=== PATIENT | female | born 1995 | race Caucasian/White ===

== ENCOUNTER → 2016-07-07 | Outpatient (CLI) | payer OTHER ==
[~2016-07-07] MED LIST: CEFDINIR 300MG300 MG PO; CIPRO 500MG TA500 MG PO; KEFLEX 500MG.500 MG PO; MOTRIN 600MG.600 MG PO; NOMEDS *; NORCO 325 MG-51 TAB PO; ROBITUSSIN NIG118 ML PO
[2016-07-10 14:37] LABS: Neisseria gonorrhoeae, NAA Negative (Negative)
== END ==
LOC: LAB 17:03
PROVIDERS: Nurse Practitioner Obstetrics & Gynecology
DX: Z34.00 Encounter for supervision of normal first pregnancy, unspecified trimester (principal)

== ENCOUNTER 2016-11-11 23:29 | Outpatient (CLI) | payer OTHER ==
[~2016-11-11] VITALS: Ht 157.5 cm; Wt 76.2 kg
[2016-11-11 23:44] VITALS: BP 122/71
[2016-11-11] MEDS ORDERED: PRENATA1 CTB PO (23:51)
[2016-11-11] MEDS ORDERED: MAG-OX 400MG T400 MG PO (23:51)
[2016-11-11] MEDS ORDERED: FERROUS SULFAT325 M2 PO (23:52)
[2016-11-12] MEDS ORDERED: AMOXICILLIN500 M2 PO (20:02)
[2016-11-12] MEDS ORDERED: ALBUTEROL-200 PUFFS/ IH (20:03)
== END 2016-11-12 00:45 ==
LOC: OBOUT 23:29 → OB 23:31 → OBOUT 11-12 00:45
DX: O26.93 Pregnancy related conditions, unspecified, third trimester (principal); Z3A.28 28 weeks gestation of pregnancy; R09.89 Other specified symptoms and signs involving the circulatory and respiratory systems

== ENCOUNTER 2016-11-12 19:41 | Emergency (ER) | payer OTHER ==
[~2016-11-12] VITALS: Ht 157.5 cm; Wt 76.2 kg
[~2016-11-12 19:41] MED LIST changes: +FERROUS SULFAT325 M2 PO; +MAG-OX 400MG T400 MG PO; +PRENATA1 CTB PO
[2016-11-12] MEDS ORDERED: AMOXICILLIN500 M2 PO (20:02)
[2016-11-12] MEDS ORDERED: ALBUTEROL-200 PUFFS/ IH (20:03)
--- NOTE | 2016-11-12 20:03 | Emergency Room Report ---
History of Present Illness Time Seen by 1943 Presenting Problem in Triage Pt arrived:Walked Presenting Problem:C/O SHORTNESS OF BREATH, COUGHING WITH GREEN SPUTUM. 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 N Clinical Suspician of Infection? N Mental Status: 1 - Regular (Normal Baseline) Sepsis Risk:Possible Sepsis Risk Have you (or family members/close friends) recently traveled outside the [place]? N If Yes, where/when: Have you had exposure to infectious disease within the past month? N TB? Other? Specify: Source patient, RN notes reviewed, family, RN/MD Exam Limitations no limitations Comment This is a 21-year-old feel patient, 29 weeks , presenting the emergency room with shortness of breath and nonproductive cough for the past 3 days. Patient was seen on the OB floor last night. Patient has a history of asthma, but she has been out (for the past 1.5 years) of her JENNIFER inhalers ( Albuterol). ALLERGIES Coded Allergies: No Known Allergies (09/05/15) Home Medications Reported Medications VIT37/IRON/FOLIC ACID (Prenata Chewable Tablet) 1 CTB PO DAILY MAGNESIUM OXIDE (Magnesium Oxide) 400 MG PO DAILY Ferrous Sulfate (Ferrous Sulfate 325MG) 325 MG PO DAILY History Medical History General CAD? No Angina: No [place]: No Hypertension? No Hyperlipidemia? No CHF? No DVT? No PE? No COPD? No Asthma? Yes Anemia? No GERD? No Gastric ulcers? No GI Bleed? No Hernia? No Thyroid Problems? No Hypothyroidism? No CVA? No Seizures? No Diabetes? No Insulin Dependent: No Insulin Pump: No Home FSBS? No Renal Insuffiency? No End Stage Renal Disease? No UTI? No Stones? No BPH? No GB Disease: No Nephritic Syndrome? No Asplenia? No Hepatitis? No Sickle Cell Disease? No Arthritis? No Migraines? No Cataracts? No Glaucoma? No MRSA? No HIV? No TB? No Anxiety? Yes Depression? Yes Cancer? No More? 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 Months Ago Est.Due Date [id number] OB DR ALCAZAR Social History Smoking Hx Smoker: Current Every Day Smoker Tobacco: Yes Type Cigarettes Packs/day < 1 Pack Alcohol Alcohol: No Review of Systems All Other Systems Reviewed and Negative Respiratory see HPI, cough, shortness of breath, wheezing Physical Exam Vital Signs Vital Signs Date Time Temp Pulse Resp B/P Pulse O2 O2 Flow FiO2 Ox Delivery Rate 11/12 2026 98.6 107 20 113/80 92 11/12 2009 20 92 11/12 1944 98.6 107 20 113/80 92 General Appearance normal appearance, WD/WN, no apparent distress Respiratory Status Yes: trachea midline, chest symmetrical, non tender chest. No: respiratory distress. Lung Sounds bilateral: wheezing. 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 No Comment Patient appears medically stable, in minimal distress. Patient will need steroids, oral antibiotics, and a refill of her inhalers. If no better to follow -up with PCP/OB per discharge instructions. Results/Orders Current Medication Orders Sig/Epifanio Start time Last Medication Dose Route Stop Time Status Admin Albuterol 2 PUFFS ONCE ONE 11/12 2014 DC 11/12 IH 11/12 Miscellaneous 1 UNIT ONCE ONE 11/12 2014 DC 11/12 XX 11/12 Albuterol 0 .STK-MED ONE 11/12 2008 DC IH Miscellaneous 0 .STK-MED ONE 11/12 2008 DC XX Ceftriaxone Sodium 0 .STK-MED ONE 11/12 2001 DC .ROUTE Lidocaine HCl 0 .STK-MED ONE 11/12 2001 DC .ROUTE Methylprednisolone 0 .STK-MED ONE 11/12 2001 DC Acetate IM Albuterol 2.5 MG ONCE ONE 11/13 1999 DC 11/12 INH 11/12 Ceftriaxone Sodium 1 GM ONCE ONE 11/13 1999 DC 11/12 IM 11/12 Lidocaine HCl 0 ONCE ONE 11/13 1999 DC 11/12 IM 11/12 Methylprednisolone 80 MG ONCE ONE 11/13 1999 DC 11/12 Acetate IM 11/12 Orders Procedure Date/time Status RT REQUEST ALBUTEROL INHALER 11/12 2002 Active RT REQUEST ALBUTEROL NEB 11/12 1957 Active Departure Departure Time of Disposition 1999 Disposition DC Home or Self Care(routine) Clinical Impression Primary Impression: Asthma exacerbation Secondary Impressions: Acute bronchitis Qualifiers: Bronchitis organism: unspecified organism Qualified Code: J20.9 - Acute bronchitis, unspecified Condition STABLE Patient Instructions Asthma -- Adult, DI for Acute Bronchitis Additional Instructions Please take the medications prescribed as directed, follow-up with your PCP/OB if no better, early next week. Discharge Counseling Counseled pt/family regarding diagnosis, medications/RX, home care, follow up needs Comment Please take the medications prescribed as directed, follow-up with your PCP/OB if no better, early next week. Prescriptions Current Visit Scripts Amoxicillin (Amoxicillin 500MG Tab) 500 MG PO TID #30 TAB Albuterol (Albuterol-Hfa Inhaler) 1 PUFF IH QID #1 INH Ref 2 ED Critical Care Critical Care No at 1330
--- NOTE | 2016-11-12 20:03 | Emergency Room Report ---
History of Present Illness Time Seen by 1943 Presenting Problem in Triage Pt arrived:Walked Presenting Problem:C/O SHORTNESS OF BREATH, COUGHING WITH GREEN SPUTUM. 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 N Clinical Suspician of Infection? N Mental Status: 1 - Regular (Normal Baseline) Sepsis Risk:Possible Sepsis Risk Have you (or family members/close friends) recently traveled outside the [place]? N If Yes, where/when: Have you had exposure to infectious disease within the past month? N TB? Other? Specify: Source patient, RN notes reviewed, family, RN/MD Exam Limitations no limitations Comment This is a 21-year-old feel patient, 29 weeks , presenting the emergency room with shortness of breath and nonproductive cough for the past 3 days. Patient was seen on the OB floor last night. Patient has a history of asthma, but she has been out (for the past 1.5 years) of her JENNIFER inhalers ( Albuterol). ALLERGIES Coded Allergies: No Known Allergies (09/05/15) Home Medications Reported Medications VIT37/IRON/FOLIC ACID (Prenata Chewable Tablet) 1 CTB PO DAILY MAGNESIUM OXIDE (Magnesium Oxide) 400 MG PO DAILY Ferrous Sulfate (Ferrous Sulfate 325MG) 325 MG PO DAILY History Medical History General CAD? No Angina: No [place]: No Hypertension? No Hyperlipidemia? No CHF? No DVT? No PE? No COPD? No Asthma? Yes Anemia? No GERD? No Gastric ulcers? No GI Bleed? No Hernia? No Thyroid Problems? No Hypothyroidism? No CVA? No Seizures? No Diabetes? No Insulin Dependent: No Insulin Pump: No Home FSBS? No Renal Insuffiency? No End Stage Renal Disease? No UTI? No Stones? No BPH? No GB Disease: No Nephritic Syndrome? No Asplenia? No Hepatitis? No Sickle Cell Disease? No Arthritis? No Migraines? No Cataracts? No Glaucoma? No MRSA? No HIV? No TB? No Anxiety? Yes Depression? Yes Cancer? No More? 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 Ago Est.Due Date [id number] OB DR ALCAZAR Social History Smoking Hx Smoker: Current Every Day Smoker Tobacco: Yes Type Cigarettes Packs/day < 1 Pack Alcohol Alcohol: No Review of Systems All Other Systems Reviewed and Negative Respiratory see HPI, cough, shortness of breath, wheezing Physical Exam Vital Signs Vital Signs Date Time Temp Pulse Resp B/P Pulse O2 O2 Flow FiO2 Ox Delivery Rate 11/12 2026 98.6 107 20 113/80 92 11/12 2009 20 92 11/12 1944 98.6 107 20 113/80 92 General Appearance normal appearance, WD/WN, no apparent distress Respiratory Status Yes: trachea midline, chest symmetrical, non tender chest. No: respiratory distress. Lung Sounds bilateral: wheezing. 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 No Comment Patient appears medically stable, in minimal distress. Patient will need steroids, oral antibiotics, and a refill of her inhalers. If no better to follow -up with PCP/OB per discharge instructions. Results/Orders Current Medication Orders Sig/Epifanio Start time Last Medication Dose Route Stop Time Status Admin Albuterol 2 PUFFS ONCE ONE 11/12 2014 DC 11/12 IH 11/12 Miscellaneous 1 UNIT ONCE ONE 11/12 2014 DC 11/12 XX 11/12 Albuterol 0 .STK-MED ONE 11/12 2008 DC IH Miscellaneous 0 .STK-MED ONE 11/12 2008 DC XX Ceftriaxone Sodium 0 .STK-MED ONE 11/12 2001 DC .ROUTE Lidocaine HCl 0 .STK-MED ONE 11/12 2001 DC .ROUTE Methylprednisolone 0 .STK-MED ONE 11/12 2001 DC Acetate IM Albuterol 2.5 MG ONCE ONE 11/13 1999 DC 11/12 INH 11/12 Ceftriaxone Sodium 1 GM ONCE ONE 11/13 1999 DC 11/12 IM 11/12 Lidocaine HCl 0 ONCE ONE 11/13 1999 DC 11/12 IM 11/12 Methylprednisolone 80 MG ONCE ONE 11/13 1999 DC 11/12 Acetate IM 11/12 Orders Procedure Date/time Status RT REQUEST ALBUTEROL INHALER 11/12 2002 Active RT REQUEST ALBUTEROL NEB 11/12 1957 Active Departure Departure Time of Disposition 1999 Disposition DC Home or Self Care(routine) Clinical Impression Primary Impression: Asthma exacerbation Secondary Impressions: Acute bronchitis Qualifiers: Bronchitis organism: unspecified organism Qualified Code: J20.9 - Acute bronchitis, unspecified Condition STABLE Patient Instructions Asthma -- Adult, DI for Acute Bronchitis Additional Instructions Please take the medications prescribed as directed, follow-up with your PCP/OB if no better, early next week. Discharge Counseling Counseled pt/family regarding diagnosis, medications/RX, home care, follow up needs Comment Please take the medications prescribed as directed, follow-up with your PCP/OB if no better, early next week. Prescriptions Current Visit Scripts Amoxicillin (Amoxicillin 500MG Tab) 500 MG PO TID #30 TAB Albuterol (Albuterol-Hfa Inhaler) 1 PUFF IH QID #1 INH Ref 2 ED Critical Care Critical Care No at [id number]
[2016-11-12 20:27] VITALS: BP 113/80
== END 2016-11-12 20:29 | disposition home or self-care (01) ==
LOC: ER 19:41
DX: O99.513 Diseases of the respiratory system complicating pregnancy, third trimester (principal); J45.901 Unspecified asthma with (acute) exacerbation; J20.9 Acute bronchitis, unspecified; O99.333 Smoking (tobacco) complicating pregnancy, third trimester; F17.210 Nicotine dependence, cigarettes, uncomplicated; Z79.899 Other long term (current) drug therapy; Z3A.29 29 weeks gestation of pregnancy; T48.6X6A Underdosing of antiasthmatics, initial encounter; Z91.128 Patient's intentional underdosing of medication regimen for other reason
CPT/HCPCS: J1030

== ENCOUNTER 2017-01-29 00:14 | Inpatient (IN) | payer OTHER, MEDICAID ==
[~2017-01-29] VITALS: Ht 157.5 cm; Wt 81.4 kg
[~2017-01-29 00:14] MED LIST changes: +ALBUTEROL-200 PUFFS/ IH; +AMOXICILLIN500 M2 PO
[2017-01-29 00:32] VITALS: BP 134/79
--- OUTSIDE RECORDS SUMMARY | 2017-01-29 01:45 | External Medical Summary Rpt | CCD ---
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 Role Phone MARY ISSA, Unavailable Unavailable MARY ISSA [facility], Unavailable [facility]available [facility] WESLEY KAPLAN, Unavailable Unavailable WESLEY KAPLAN [facility] Unavailable Unavailable [facility] Unavailable Un[facility], [facility] Unavailable Unavailable [facility], [facility] TANVIR SANDERS, TANVIR Unavailable Unavailable [facility] Unavailable Unavailable #[id number], [id number] # Unavailable Unavailable [id number], [facility] # [id number] Purpose Continuity of Care Document - 03-24-2007 through 2016 Problems Code Diagnosis DOS Provider Status 845.00 845.00 05-01-2012 [place] SPRAIN OF [facility] E849.8 E849.8 05-01-2012 Elmer ACCIDENT IN [facility] E927.0 E927.0 05-01-2012 Elmer OVEREXERTIO [facility] SUDDEN STRENUOUS MOVEMENT 3671 MYOPIA 05-21-2011 TANVIR SANDERS [id number] GENERALIZED 05-05-2010 [facility] ND PAIN [facility] 462 ACUTE 05-02-2010 [facility] ND PHARYNGITIS [facility] 7295 PAIN IN 02-10-2010 [facility] SOFT [facility] LIMB 7840 HEADACHE 01-21-2010 [place] CO [facility] 53888 INJURY OF 11-05-2009 [facility] ND FACE AND MIDDLE NECK OTHER SCHOOL AND UNSPECIFIED 57209 UNSPECIFIED 07-28-2007 [facility] SPRAIN AND STRAIN 37231 SPRAIN AND 07-28-2007 [place] STRAIN OF MEDICAL UNSPECIFIED [facility] FOOT E8498 OTHER 07-28-[address] [place] [address] [facility] E8840 ACCIDENTAL 07-28-2007 [place] FALL FROM MEDICAL PLAYGROUND [facility] V202 ROUTINE 06-15-2007 [facility]/CO INFANT OR HEALTH [facility]ILD [facility] ACCT CHECK 9198 OTH&UNS SUP 05-30-2007 [facility] MX&UNS SITE CENTRAL W/O BANK ACCT MENTION INF 9199 OTH&UNSPEC 03-24-2007 DHS/CO SUP INJURY HEALTH OTH CENTRAL MX&UNSPEC BANK ACCT SITES INF 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 F32.9 MAJOR DEPRESSIVE DISORDER, SINGLE EPISODE, UNSPECIFIED J06.9 ACUTE UPPER RESPIRATORY INFECTION, UNSPECIFIED J20.9 ACUTE BRONCHITIS, UNSPECIFIED J45.901 UNSPECIFIED ASTHMA WITH (ACUTE) EXACERBATIO N N23 UNSPECIFIED RENAL COLIC N39.0 URINARY TRACT INFECTION, SITE NOT SPECIFIED R10.9 UNSPECIFIED ABDOMINAL PAIN R11.0 NAUSEA R45.851 SUICIDAL IDEATIONS T07.XXXA UNSPECIFIED MULTIPLE INJURIES, INITIAL ENCOUNTER T14.8 OTHER INJURY OF UNSPECIFIED BODY REGION Allergies, Adverse Reactions, Alerts Type Allergy to substance Adverse Reaction to Substance Substance Reaction Severity NO KNOWN ALLERGIES Unknown Unknown Medications Na ND Rx Da Fi Fi Am Da Di Ph RX Ph St me C No te ll ll ou ys ag ar # ys at rm s nt no ma ic us Or Da si cy ia de te s n re d Ib 62 02 0 No up 58 -2 ro 40 4- Lo fe 74 20 ng n 70 13 er 60 1 0M Ac G ti Ta ve bl et ST 00 05 10 5 30 30 CL 23 MU Ac RA 00 -1 -2 .0 IN 82 LB ti TT 23 0- 5- 00 IC 47 ER ve ER 23 20 20 RY A 83 11 11 PH 18 0 AR BR MA IA MG CY N T CA LL PS C UL E SI 00 04 10 5 30 30 CL 23 MU Ac NG 00 -2 -2 .0 IN 74 LB ti UL 60 9- 5- 00 IC 73 ER ve AI 27 20 20 RY R 55 11 11 PH 5 4 AR BR MG MA IA CY N TA T BL LL ET C CH EW SI 00 04 09 5 30 30 CL 23 MU Ac NG 00 -2 -2 .0 IN 74 LB ti UL 60 9- 2- 00 IC 73 ER ve AI 27 20 20 RY R 55 11 11 PH 5 4 AR BR MG MA IA CY N TA T BL LL ET C CH EW ST 00 05 09 5 30 30 CL 23 MU Ac RA 00 -1 -2 .0 IN 82 LB ti TT 23 0- 2- 00 IC 47 ER ve ER 23 20 20 RY A 83 11 11 PH 18 0 AR BR MA IA MG CY N T CA LL PS C UL E AD 54 08 08 0 30 30 CL 24 MU Ac DE 09 -2 -2 .0 IN 43 LB ti RA 20 4- 4- 00 IC 93 ER ve LL 38 20 20 RY 70 11 11 PH XR 1 AR BR MA IA 20 CY N T MG LL C CA PS UL E CL 00 08 08 0 30 30 CL 24 MU Ac ON 37 -2 -2 .0 IN 43 LB ti ID 80 4- 4- 00 IC 95 ER ve IN 15 20 20 RY E 20 11 11 PH HC 1 AR BR L MA IA 0. CY N 1 T MG LL C TA BL ET SI 00 04 08 5 30 30 CL 23 MU Ac NG 00 -2 -1 .0 IN 74 LB ti UL 60 9- 9- 00 IC 73 ER ve AI 27 20 20 RY R 55 11 11 PH 5 4 AR BR MG MA IA CY N TA T BL LL ET C CH EW ST 00 05 08 5 30 30 CL 23 MU Ac RA 00 -1 -1 .0 IN 82 LB ti TT 23 0- 9- 00 IC 47 ER ve ER 23 20 20 RY A 83 11 11 PH 18 0 AR BR MA IA MG CY N T CA LL PS C UL E CL 00 07 07 0 30 30 CL 24 MU Ac ON 37 -0 -2 .0 IN 14 LB ti ID 80 5- 5- 00 IC 76 ER ve IN 15 20 20 RY E 20 11 11 PH HC 1 AR BR L MA IA 0. CY N 1 T MG LL C TA BL ET ST 00 05 07 5 30 30 CL 23 MU Ac RA 00 -1 -2 .0 IN 82 LB ti TT 23 0- 2- 00 IC 47 ER ve ER 23 20 20 RY A 83 11 11 PH 18 0 AR BR MA IA MG CY N T CA LL PS C UL E AD 54 07 07 0 30 30 CL 24 MU Ac DE 09 -2 -2 .0 IN 25 LB ti RA 20 2- 2- 00 IC 28 ER ve LL 38 20 20 RY 70 11 11 PH XR 1 AR BR MA IA 20 CY N T MG LL C CA PS UL E SI 00 04 07 5 30 30 CL 23 MU Ac NG 00 -2 -0 .0 IN 74 LB ti UL 60 9- 1- 00 IC 73 ER ve AI 27 20 20 RY R 55 11 11 PH 5 4 AR BR MG MA IA CY N TA T BL LL ET C CH EW AD 54 06 06 0 30 30 CL 24 MU Ac DE 09 -1 -1 .0 IN 02 LB ti RA 20 1- 1- 00 IC 32 ER ve LL 38 20 20 RY 70 11 11 PH XR 1 AR BR MA IA 20 CY N T MG LL C CA PS UL E ST 00 05 06 5 30 30 CL 23 MU Ac RA 00 -1 -1 .0 IN 82 LB ti TT 23 0- 0- 00 IC 47 ER ve ER 23 20 20 RY A 83 11 11 PH 18 0 AR BR MA IA MG CY N T CA LL PS C UL E SI 00 04 06 5 30 30 CL 23 MU Ac NG 00 -2 -0 .0 IN 74 LB ti UL 60 9- 2- 00 IC 73 ER ve AI 27 20 20 RY R 55 11 11 PH 5 4 AR BR MG MA IA CY N TA T BL LL ET C CH EW CL 00 01 06 1 30 30 CL 23 HOYT Ac ON 37 -2 -0 .0 IN 13 MM ti ID 80 6- 2- 00 IC 56 ON ve IN 15 20 20 D E 20 11 11 PH KA HC 1 AR TH L MA AR 0. CY IN 1 E MG LL Y C TA BL ET AD 54 05 05 0 30 30 CL 23 MU Ac DE 09 -1 -1 .0 IN 82 LB ti RA 20 0- 0- 00 IC 46 ER ve LL 38 20 20 RY 70 11 11 PH XR 1 AR BR MA IA 20 CY N T MG LL C CA PS UL E ST 00 05 05 0 30 30 CL 23 MU Ac RA 00 -1 -1 .0 IN 82 LB ti TT 23 0- 0- 00 IC 47 ER ve ER 23 20 20 RY A 83 11 11 PH 18 0 AR BR MA IA MG CY N T CA LL PS C UL E SI 00 04 04 5 30 30 CL 23 MU Ac NG 00 -2 -2 .0 IN 74 LB ti UL 60 9- 9- 00 IC 73 ER ve AI 27 20 20 RY R 55 11 11 PH 5 4 AR BR MG MA IA CY N TA T BL LL ET C CH EW CL 00 01 04 1 30 30 CL 23 HOYT Ac ON 37 -2 -2 .0 IN 13 MM ti ID 80 6- 7- 00 IC 56 ON ve IN 15 20 20 D E 20 11 11 PH KA HC 1 AR TH L MA AR 0. CY IN 1 E MG LL Y C TA BL ET ST 00 02 04 1 30 30 CL 23 HOYT Ac RA 00 -2 -0 .0 IN 33 MM ti TT 23 3- 7- 00 IC 55 ON ve ER 23 20 20 D A 83 11 11 PH KA 18 0 AR TH MA AR MG CY IN E CA LL Y PS C UL E AD 54 04 04 0 30 30 CL 23 MU Ac DE 09 -0 -0 .0 IN 61 LB ti RA 20 7- 7- 00 IC 89 ER ve LL 38 20 20 RY 70 11 11 PH XR 1 AR BR MA IA 20 CY N T MG LL C CA PS UL E CL 00 10 03 5 30 30 CL 22 MU Ac ON 37 -1 -2 .0 IN 47 LB ti ID 80 1- 8- 00 IC 55 ER ve IN 15 20 20 RY E 20 10 11 PH HC 1 AR BR L MA IA 0. CY N 1 T MG LL C TA BL ET SI 00 10 03 5 30 30 CL 22 MU Ac NG 00 -1 -2 .0 IN 47 LB ti UL 60 1- 8- 00 IC 56 ER ve AI 27 20 20 RY R 55 10 11 PH 5 4 AR BR MG MA IA CY N TA T BL LL ET C CH EW AD 54 02 02 0 30 30 CL 23 CO Ac DE 09 -2 -2 .0 IN 33 OP ti RA 20 3- 3- 00 IC 56 ER ve LL 38 20 20 70 11 11 PH DANNY XR 1 AR HN MA G 20 CY MG LL C CA PS UL E ST 00 02 02 1 30 30 CL 23 HOYT Ac RA 00 -2 -2 .0 IN 33 MM ti TT 23 3- 3- 00 IC 55 ON ve ER 23 20 20 D A 83 11 11 PH KA 18 0 AR TH MA AR MG CY IN E CA LL Y PS C UL E CL 00 10 02 5 30 30 CL 22 MU Ac ON 37 -1 -2 .0 IN 47 LB ti ID 80 1- 3- 00 IC 55 ER ve IN 15 20 20 RY E 20 10 11 PH HC 1 AR BR L MA IA 0. CY N 1 T MG LL C TA BL ET SI 00 10 02 5 30 30 CL 22 MU Ac NG 00 -1 -2 .0 IN 47 LB ti UL 60 1- 3- 00 IC 56 ER ve AI 27 20 20 RY R 55 10 11 PH 5 4 AR BR MG MA IA CY N TA T BL LL ET C CH EW AD 54 01 01 0 30 30 CL 23 CO Ac DE 09 -2 -2 .0 IN 13 OP ti RA 20 6- 6- 00 IC 63 ER ve LL 38 20 20 70 11 11 PH DANNY XR 1 AR HN MA G 20 CY MG LL C CA PS UL E ST 00 01 01 0 30 30 CL 23 HOYT Ac RA 00 -2 -2 .0 IN 13 MM ti TT 23 6- 6- 00 IC 55 ON ve ER 23 20 20 D A 83 11 11 PH KA 18 0 AR TH MA AR MG CY IN E CA LL Y PS C UL E CL 00 10 01 5 30 30 CL 22 MU Ac ON 37 -1 -2 .0 IN 47 LB ti ID 80 1- 0- 00 IC 55 ER ve IN 15 20 20 RY E 20 10 11 PH HC 1 AR BR L MA IA 0. CY N 1 T MG LL C TA BL ET SI 00 10 01 5 30 30 CL 22 MU Ac NG 00 -1 -2 .0 IN 47 LB ti UL 60 1- 0- 00 IC 56 ER ve AI 27 20 20 RY R 55 10 11 PH 5 4 AR BR MG MA IA CY N TA T BL LL ET C CH EW ST 00 12 12 0 30 30 CL 22 CO Ac RA 00 -2 -2 .0 IN 92 OP ti TT 23 2- 2- 00 IC 22 ER ve ER 23 20 20 A 83 10 10 PH DANNY 18 0 AR HN MA G MG CY CA LL PS C UL E AD 54 12 12 0 30 30 CL 22 CO Ac DE 09 -2 -2 .0 IN 92 OP ti RA 20 2- 2- 00 IC 24 ER ve LL 38 20 20 70 10 10 PH DANNY XR 1 AR HN MA G 20 CY MG LL C CA PS UL E CL 00 10 12 5 30 30 CL 22 MU Ac ON 37 -1 -2 .0 IN 47 LB ti ID 80 1- 0- 00 IC 55 ER ve IN 15 20 20 RY E 20 10 10 PH HC 1 AR BR L MA IA 0. CY N 1 T MG LL C TA BL ET SI 00 10 12 5 30 30 CL 22 MU Ac NG 00 -1 -2 .0 IN 47 LB ti UL 60 1- 0- 00 IC 56 ER ve AI 27 20 20 RY R 55 10 10 PH 5 4 AR BR MG MA IA CY N TA T BL LL ET C CH EW ST 00 11 11 0 30 30 CL 22 MU Ac RA 00 -1 -1 .0 IN 71 LB ti TT 23 8- 8- 00 IC 22 ER ve ER 23 20 20 RY A 83 10 10 PH 18 0 AR BR MA IA MG CY N T CA LL PS C UL E AD 54 11 11 0 30 30 CL 22 MU Ac DE 09 -1 -1 .0 IN 71 LB ti RA 20 8- 8- 00 IC 23 ER ve LL 38 20 20 RY 70 10 10 PH XR 1 AR BR MA IA 20 CY N T MG LL C CA PS UL E CL 00 10 11 5 30 30 CL 22 MU Ac ON 37 -1 -1 .0 IN 47 LB ti ID 80 1- 6- 00 IC 55 ER ve IN 15 20 20 RY E 20 10 10 PH HC 1 AR BR L MA IA 0. CY N 1 T MG LL C TA BL ET SI 00 10 11 5 30 30 CL 22 MU Ac NG 00 -1 -1 .0 IN 47 LB ti UL 60 1- 6- 00 IC 56 ER ve AI 27 20 20 RY R 55 10 10 PH 5 4 AR BR MG MA IA CY N TA T BL LL ET C CH EW AD 54 10 10 0 30 30 CL 22 MU Ac DE 09 -1 -1 .0 IN 49 LB ti RA 20 3- 4- 00 IC 53 ER ve LL 38 20 20 RY 70 10 10 PH XR 1 AR BR MA IA 20 CY N T MG LL C CA PS UL E ST 00 10 10 0 30 30 CL 22 MU Ac RA 00 -1 -1 .0 IN 49 LB ti TT 23 3- 3- 00 IC 28 ER ve ER 23 20 20 RY A 83 10 10 PH 18 0 AR BR MA IA MG CY N T CA LL PS C UL E CL 00 10 10 5 30 30 CL 22 MU Ac ON 37 -1 -1 .0 IN 47 LB ti ID 80 1- 1- 00 IC 55 ER ve IN 15 20 20 RY E 20 10 10 PH HC 1 AR BR L MA IA 0. CY N 1 T MG LL C TA BL ET SI 00 10 10 5 30 30 CL 22 MU Ac NG 00 -1 -1 .0 IN 47 LB ti UL 60 1- 1- 00 IC 56 ER ve AI 27 20 20 RY R 53 10 10 PH 5 1 AR BR MG MA IA CY N TA T BL LL ET C CH EW AD 54 09 09 0 30 30 CL 22 MU Ac DE 09 -1 -1 .0 IN 33 LB ti RA 20 5- 6- 00 IC 70 ER ve LL 38 20 20 RY 70 10 10 PH XR 1 AR BR MA IA 20 CY N T MG LL C CA PS UL E CL 00 07 09 1 30 30 WA 70 NO Ac ON 37 -3 -1 .0 L- 80 RF ti ID 80 0- 3- 00 MA 32 LE ve IN 15 20 20 RT 7 ET E 20 10 10 R HC 1 PH L AR HE 0. MA NR 1 CY Y MG # TA 10 BL [address] 00 05 09 5 30 30 WA 70 MU Ac RA 00 -1 -1 .0 L- 71 LB ti TT 23 7- 3- 00 MA 03 ER ve ER 23 20 20 RT 7 RY A 83 10 10 18 0 PH BR AR IA MG MA N CY T CA # PS UL 10 E 05 91 SI 00 06 09 2 30 30 WA 70 MU Ac NG 00 -2 -1 .0 L- 76 LB ti UL 60 6- 3- 00 MA 26 ER ve AI 27 20 20 RT 4 RY R 53 10 10 5 1 PH BR MG AR IA MA N TA CY T BL # ET 10 CH 05 EW 91 AD 54 07 08 0 30 30 WA 22 MU Ac DE 09 -3 -0 .0 L- 18 LB ti RA 20 0- 5- 00 MA 41 ER ve LL 38 20 20 RT 2 RY 70 10 10 XR 1 PH BR AR IA 20 MA N CY T MG # CA 10 PS 05 UL 91 E CL 00 07 07 1 30 30 WA 70 NO Ac ON 37 -3 -3 .0 L- 80 RF ti ID 80 0- 0- 00 MA 32 LE ve IN 15 20 20 RT 7 ET E 20 10 10 R HC 1 PH L AR HE 0. MA NR 1 CY Y MG # TA 10 BL [address] 00 05 07 5 30 30 WA 70 MU Ac RA 00 -1 -3 .0 L- 71 LB ti TT 23 7- 0- 00 MA 03 ER ve ER 23 20 20 RT 7 RY A 83 10 10 18 0 PH BR AR IA MG MA N CY T CA # PS UL 10 E 05 91 SI 00 06 07 2 30 30 WA 70 MU Ac NG 00 -2 -3 .0 L- 76 LB ti UL 60 6- 0- 00 MA 26 ER ve AI 27 20 20 RT 4 RY R 53 10 10 5 1 PH BR MG AR IA MA N TA CY T BL # ET 10 CH 05 EW 91 AD 54 06 07 0 30 30 WA 22 MU Ac DE 09 -2 -0 .0 L- 18 LB ti RA 20 9- 1- 00 MA 21 ER ve LL 38 20 20 RT 6 RY 70 10 10 XR 1 PH BR AR IA 20 MA N CY T MG # CA 10 PS [address] 00 05 06 5 30 30 WA 70 MU Ac RA 00 -1 -2 .0 L- 71 LB ti TT 23 7- 6- 00 MA 03 ER ve ER 23 20 20 RT 7 RY A 83 10 10 18 0 PH BR AR IA MG MA N CY T CA # PS UL 10 E 05 91 SI 00 06 06 2 30 30 WA 70 MU Ac NG 00 -2 -2 .0 L- 76 LB ti UL 60 6- 6- 00 MA 26 ER ve AI 27 20 20 RT 4 RY R 53 10 10 5 1 PH BR MG AR IA MA N TA CY T BL # ET 10 CH 05 EW 91 CL 00 03 06 3 30 30 WA 70 NO Ac ON 37 -1 -2 .0 L- 62 RF ti ID 80 5- 6- 00 MA 58 LE ve IN 15 20 20 RT 9 ET E 20 10 10 R HC 1 PH L AR HE 0. MA NR 1 CY Y MG # TA 10 BL 05 ET 91 AD 54 05 05 0 30 30 WA 22 MU Ac DE 09 -1 -2 .0 L- 17 LB ti RA 20 7- 2- 00 MA 99 ER ve LL 38 20 20 RT 1 RY 70 10 10 XR 1 PH BR AR IA 20 MA N CY T MG # CA 10 PS 05 UL 91 E CL 00 03 05 3 30 30 WA 70 NO Ac ON 37 -1 -1 .0 L- 62 RF ti ID 80 5- 7- 00 MA 58 LE ve IN 15 20 20 RT 9 ET E 20 10 10 R HC 1 PH L AR HE 0. MA NR 1 CY Y MG # TA 10 BL 05 ET 91 SI 00 02 05 3 30 30 WA 70 MU Ac NG 00 -1 -1 .0 L- 58 LB ti UL 60 2- 7- 00 MA 35 ER ve AI 27 20 20 RT 7 RY R 53 10 10 5 1 PH BR MG AR IA MA N TA CY T BL # ET 10 CH [address] 00 05 05 5 30 30 WA 70 MU Ac RA 00 -1 -1 .0 L- 71 LB ti TT 23 7- 7- 00 MA 03 ER ve ER 23 20 20 RT 7 RY A 83 10 10 18 0 PH BR AR IA MG MA N CY T CA # PS UL [address] 00 11 04 5 30 30 WA 70 NO Ac RA 00 -1 -2 .0 L- 45 RF ti TT 23 3- 0- 00 MA 58 LE ve ER 23 20 20 RT 3 ET A 83 09 10 R 18 0 PH AR HE MG MA NR CY Y CA # PS UL 10 E 05 91 AD 54 04 04 0 30 30 WA 22 MU Ac DE 09 -1 -2 .0 L- 17 LB ti RA 20 9- 0- 00 MA 79 ER ve LL 38 20 20 RT 3 RY 70 10 10 XR 1 PH BR AR IA 20 MA N CY T MG # CA 10 PS 05 UL 91 E CL 00 03 04 3 30 30 WA 70 NO Ac ON 37 -1 -1 .0 L- 62 RF ti ID 80 5- 4- 00 MA 58 LE ve IN 15 20 20 RT 9 ET E 20 10 10 R HC 1 PH L AR HE 0. MA NR 1 CY Y MG # TA 10 BL 05 ET 91 SI 00 02 04 3 30 30 WA 70 MU Ac NG 00 -1 -1 .0 L- 58 LB ti UL 60 2- 4- 00 MA 35 ER ve AI 27 20 20 RT 7 RY R 53 10 10 5 1 PH BR MG AR IA MA N TA CY T BL # ET 10 CH 05 EW 91 AD 54 03 03 0 30 30 WA 22 MU Ac DE 09 -1 -1 .0 L- 17 LB ti RA 20 9- 9- 00 MA 64 ER ve LL 38 20 20 RT 5 RY 70 10 10 XR 1 PH BR AR IA 20 MA N CY T MG # CA 10 PS [address] 00 11 03 5 30 30 WA 70 NO Ac RA 00 -1 -1 .0 L- 45 RF ti TT 23 3- 5- 00 MA 58 LE ve ER 23 20 20 RT 3 ET A 83 09 10 R 18 0 PH AR HE MG MA NR CY Y CA # PS UL 10 E 05 91 CL 00 03 03 3 30 30 WA 70 NO Ac ON 37 -1 -1 .0 L- 62 RF ti ID 80 5- 5- 00 MA 58 LE ve IN 15 20 20 RT 9 ET E 20 10 10 R HC 1 PH L AR HE 0. MA NR 1 CY Y MG # TA 10 BL 05 ET 91 SI 00 02 03 3 30 30 WA 70 MU Ac NG 00 -1 -1 .0 L- 58 LB ti UL 60 2- 5- 00 MA 35 ER ve AI 27 20 20 RT 7 RY R 53 10 10 5 1 PH BR MG AR IA MA N TA CY T BL # ET 10 CH 05 EW 91 68 03 03 0 30 30 WA 70 MU Ac 04 -1 -1 .0 L- 62 LB ti 70 5- 5- 00 MA 59 ER ve 12 20 20 RT 1 RY 10 10 10 1 PH BR AR IA MA N CY T # 10 05 91 CL 00 09 02 05 30 30 WA 70 NO Ac ON 37 -0 -2 .0 L- 35 RF ti ID 80 5- 6- 00 MA 54 LE ve IN 15 20 20 RT 4 ET E 20 09 10 R HC 1 PH L AR HE 0. MA NR 1 CY Y MG #5 TA [address] 00 11 02 03 30 30 WA 70 NO Ac RA 00 -1 -2 .0 L- 45 RF ti TT 23 3- 6- 00 MA 58 LE ve ER 23 20 20 RT 3 ET A 83 09 10 R 18 0 PH AR HE MG MA NR CY Y CA PS #5 UL 91 E 68 02 02 00 30 30 WA 70 MU Ac 04 -1 -2 .0 L- 58 LB ti 70 2- 6- 00 MA 35 ER ve 12 20 20 RT 8 RY 10 10 10 1 PH BR AR IA MA N CY T #5 91 AD 54 02 02 00 30 30 WA 22 MU Ac DE 09 -1 -2 .0 L- 17 LB ti RA 20 2- 6- 00 MA 48 ER ve LL 38 20 20 RT 4 RY 70 10 10 XR 1 PH BR AR IA 20 MA N CY T MG #5 CA 91 PS UL E SI 00 02 02 00 30 30 WA 70 MU Ac NG 00 -1 -2 .0 L- 58 LB ti UL 60 2- 6- 00 MA 35 ER ve AI 27 20 20 RT 7 RY R 53 10 10 5 1 PH BR MG AR IA MA N TA CY T BL ET #5 91 CH EW AD 54 01 01 00 30 30 WA 22 MU Ac DE 09 -1 -2 .0 L- 17 LB ti RA 20 3- 8- 00 MA 32 ER ve LL 38 20 20 RT 6 RY 70 10 10 XR 1 PH BR AR IA 20 MA N CY T MG #5 CA 91 PS UL E 68 01 01 00 30 30 WA 70 MU Ac 04 -1 -2 .0 L- 54 LB ti 70 5- 8- 00 MA 50 ER ve 12 20 20 RT 0 RY 10 10 10 1 PH BR AR IA MA N CY T #5 91 CL 00 09 01 04 30 30 WA 70 NO Ac ON 37 -0 -2 .0 L- 35 RF ti ID 80 5- 8- 00 MA 54 LE ve IN 15 20 20 RT 4 ET E 20 09 10 R HC 1 PH L AR HE 0. MA NR 1 CY Y MG #5 TA [address] 00 11 01 02 30 30 WA 70 NO Ac RA 00 -1 -2 .0 L- 45 RF ti TT 23 3- 8- 00 MA 58 LE ve ER 23 20 20 RT 3 ET A 83 09 10 R 18 0 PH AR HE MG MA NR CY Y CA PS #5 UL 91 E SI 00 06 01 04 30 30 WA 70 MU Ac NG 00 -2 -1 .0 L- 26 LB ti UL 60 5- 4- 00 MA 12 ER ve AI 27 20 20 RT 3 RY R 53 09 10 5 1 PH BR MG AR IA MA N TA CY T BL ET #5 91 CH EW 68 12 12 00 30 30 WA 70 MU Ac 04 -0 -3 .0 L- 49 LB ti 70 9- 1- 00 MA 38 ER ve 12 20 20 RT 9 RY 10 09 09 1 PH BR AR IA MA N CY T #5 91 AD 54 12 12 00 30 30 WA 22 CO Ac DE 09 -1 -3 .0 L- 17 OP ti RA 20 2- 1- 00 MA 17 ER ve LL 38 20 20 RT 7 70 09 09 DANNY XR 1 PH HN AR G 20 MA CY MG #5 CA 91 PS UL E SI 00 06 12 03 30 30 WA 70 MU Ac NG 00 -2 -1 .0 L- 26 LB ti UL 60 5- 7- 00 MA 12 ER ve AI 27 20 20 RT 3 RY R 53 09 09 5 1 PH BR MG AR IA MA N TA CY T BL ET #5 91 CH EW CL 00 09 12 03 30 30 WA 70 NO Ac ON 37 -0 -1 .0 L- 35 RF ti ID 80 5- 7- 00 MA 54 LE ve IN 15 20 20 RT 4 ET E 20 09 09 R HC 1 PH L AR HE 0. MA NR 1 CY Y MG #5 TA [address] 00 11 12 01 30 30 WA 70 NO Ac RA 00 -1 -1 .0 L- 45 RF ti TT 23 3- 7- 00 MA 58 LE ve ER 23 20 20 RT 3 ET A 83 09 09 R 18 0 PH AR HE MG MA NR CY Y CA PS #5 UL 91 E CL 00 09 11 02 30 30 WA 70 NO Ac ON 37 -0 -1 .0 L- 35 RF ti ID 80 5- 9- 00 MA 54 LE ve IN 15 20 20 RT 4 ET E 20 09 09 R HC 1 PH L AR HE 0. MA NR 1 CY Y MG #5 TA [address] 00 11 11 00 30 30 WA 70 NO Ac RA 00 -1 -1 .0 L- 45 RF ti TT 23 3- 9- 00 MA 58 LE ve ER 23 20 20 RT 3 ET A 83 09 09 R 18 0 PH AR HE MG MA NR CY Y CA PS #5 UL 91 E 68 09 11 00 30 30 WA 70 MU Ac 04 -1 -1 .0 L- 36 LB ti 70 0- 9- 00 MA 26 ER ve 12 20 20 RT 5 RY 10 09 09 1 PH BR AR IA MA N CY T #5 91 SI 00 06 11 02 30 30 WA 70 MU Ac NG 00 -2 -1 .0 L- 26 LB ti UL 60 5- 9- 00 MA 12 ER ve AI 27 20 20 RT 3 RY R 53 09 09 5 1 PH BR MG AR IA MA N TA CY T BL ET #5 91 CH EW AD 54 11 11 00 30 30 WA 22 NO Ac DE 09 -1 -1 .0 L- 17 RF ti RA 20 3- 9- 00 MA 00 LE ve LL 38 20 20 RT 5 ET 70 09 09 R XR 1 PH AR HE 20 MA NR CY Y MG #5 CA 91 PS UL E CL 00 09 09 00 30 30 WA 70 NO Ac ON 37 -0 -2 .0 L- 35 RF ti ID 80 5- 4- 00 MA 54 LE ve IN 15 20 20 RT 4 ET E 20 09 09 R HC 1 PH L AR HE 0. MA NR 1 CY Y MG #5 TA 91 BL ET 68 09 09 00 30 30 WA 70 MU Ac 04 -1 -2 .0 L- 36 LB ti 70 0- 4- 00 MA 26 ER ve 12 20 20 RT 5 RY 10 09 09 1 PH BR AR IA MA N CY T #[address] 00 09 09 00 30 30 WA 70 NO Ac RA 00 -0 -2 .0 L- 35 RF ti TT 23 5- 4- 00 MA 54 LE ve ER 23 20 20 RT 5 ET A 83 09 09 R 18 0 PH AR HE MG MA NR CY Y CA PS #5 UL 91 E AD 54 09 09 00 30 30 WA 22 NO Ac DE 09 -0 -2 .0 L- 16 RF ti RA 20 5- 4- 00 MA 67 LE ve LL 38 20 20 RT 3 ET 70 09 09 R XR 1 PH AR HE 20 MA NR CY Y MG #5 CA 91 PS UL E AD 54 07 08 00 30 30 WA 22 CO Ac DE 09 -2 -1 .0 L- 16 OP ti RA 20 4- 3- 00 MA 45 ER ve LL 38 20 20 RT 1 70 09 09 DANNY XR 1 PH HN AR G 20 MA CY MG #5 CA 91 PS UL E 51 06 07 01 30 30 WA 70 MU Ac 07 -1 -3 .0 L- 24 LB ti 90 5- 0- 00 MA 63 ER ve 29 20 20 RT 5 RY 96 09 09 3 PH BR AR IA MA N CY T #5 91 SI 00 06 07 01 30 30 WA 70 MU Ac NG 00 -2 -3 .0 L- 26 LB ti UL 60 5- 0- 00 MA 12 ER ve AI 27 20 20 RT 3 RY R 53 09 09 5 1 PH BR MG AR IA MA N TA CY T BL ET #5 91 CH EW 10 05 07 02 60 30 WA 70 MU Ac 12 -2 -3 .0 L- 22 LB ti 20 7- 0- 00 MA 14 ER ve 20 20 20 RT 5 RY 31 09 09 0 PH BR AR IA MA N CY T #5 91 SI 00 06 07 00 30 30 WA 70 MU Ac NG 00 -2 -0 .0 L- 26 LB ti UL 60 5- 2- 00 MA 12 ER ve AI 27 20 20 RT 3 RY R 53 09 09 5 1 PH BR MG AR IA MA N TA CY T BL ET #5 91 CH EW AD 54 06 07 00 30 30 WA 22 MU Ac DE 09 -2 -0 .0 L- 16 LB ti RA 20 6- 2- 00 MA 31 ER ve LL 38 20 20 RT 5 RY 70 09 09 XR 1 PH BR AR IA 20 MA N CY T MG #5 CA 91 PS UL E 10 05 07 01 60 30 WA 70 MU Ac 12 -2 -0 .0 L- 22 LB ti 20 7- 2- 00 MA 14 ER ve 20 20 20 RT 5 RY 31 09 09 0 PH BR AR IA MA N CY T #5 91 51 06 07 00 30 30 WA 70 MU Ac 07 -1 -0 .0 L- 24 LB ti 90 5- 2- 00 MA 63 ER ve 29 20 20 RT 5 RY 96 09 09 3 PH BR AR IA MA N CY T #5 91 AD 54 05 06 00 30 30 WA 22 MU Ac DE 09 -2 -0 .0 L- 16 LB ti RA 20 6- 4- 00 MA 16 ER ve LL 38 20 20 RT 5 RY 70 09 09 XR 1 PH BR AR IA 20 MA N CY T MG #5 CA 91 PS UL E SI 00 12 06 05 30 30 WA 69 MU Ac NG 00 -1 -0 .0 L- 99 LB ti UL 60 1- 4- 00 MA 49 ER ve AI 27 20 20 RT 6 RY R 53 08 09 5 1 PH BR MG AR IA MA N TA CY T BL ET #5 91 CH EW 10 05 06 00 60 30 WA 70 MU Ac 12 -2 -0 .0 L- 22 LB ti 20 7- 4- 00 MA 14 ER ve 20 20 20 RT 5 RY 31 09 09 0 PH BR AR IA MA N CY T #5 91 51 02 05 02 30 30 WA 70 MU Ac 07 -1 -2 .0 L- 07 LB ti 90 2- 1- 00 MA 83 ER ve 29 20 20 RT 4 RY 96 09 09 3 PH BR AR IA MA N CY T #5 91 SI 00 12 05 04 30 30 WA 69 MU Ac NG 00 -1 -0 .0 L- 99 LB ti UL 60 1- 7- 00 MA 49 ER ve AI 27 20 20 RT 6 RY R 53 08 09 5 1 PH BR MG AR IA MA N TA CY T BL ET #5 91 CH EW AD 54 04 05 00 30 30 WA 22 MU Ac DE 09 -2 -0 .0 L- 15 LB ti RA 20 0- 7- 00 MA 98 ER ve LL 38 20 20 RT 4 RY 70 09 09 XR 1 PH BR AR IA 20 MA N CY T MG #5 CA 91 PS UL E 10 03 05 01 60 30 WA 70 MU Ac 12 -1 -0 .0 L- 11 LB ti 20 2- 7- 00 MA 96 ER ve 20 20 20 RT 3 RY 31 09 09 0 PH BR AR IA MA N CY T #5 91 51 02 04 01 30 30 WA 70 MU Ac 07 -1 -2 .0 L- 07 LB ti 90 2- 3- 00 MA 83 ER ve 29 20 20 RT 4 RY 96 09 09 3 PH BR AR IA MA N CY T #5 91 SI 00 12 03 03 30 30 WA 69 MU Ac NG 00 -1 -2 .0 L- 99 LB ti UL 60 1- 6- 00 MA 49 ER ve AI 27 20 20 RT 6 RY R 53 08 09 5 1 PH BR MG AR IA MA N TA CY T BL ET #5 91 CH EW AD 54 03 03 00 30 30 WA 22 MU Ac DE 09 -1 -2 .0 L- 15 LB ti RA 20 6- 6- 00 MA 80 ER ve LL 38 20 20 RT 3 RY 70 09 09 XR 1 PH BR AR IA 20 MA N CY T MG #5 CA 91 PS UL E 10 03 03 00 60 30 WA 70 MU Ac 12 -1 -2 .0 L- 11 LB ti 20 2- 6- 00 MA 96 ER ve 20 20 20 RT 3 RY 31 09 09 0 PH BR AR IA MA N CY T #5 91 51 02 03 00 30 30 WA 70 MU Ac 07 -1 -1 .0 L- 07 LB ti 90 2- 2- 00 MA 83 ER ve 29 20 20 RT 4 RY 96 09 09 3 PH BR AR IA MA N CY T #5 91 MU 00 02 02 00 22 7 WA 70 MU Ac PI 09 -1 -2 .0 L- 07 LB ti RO 31 2- 6- 00 MA 83 ER ve CI 01 20 20 RT 5 RY N 04 09 09 2% 2 PH BR AR IA OI MA N NT CY T ME NT #5 91 SI 00 12 02 02 30 30 WA 69 MU Ac NG 00 -1 -2 .0 L- 99 LB ti UL 60 1- 6- 00 MA 49 ER ve AI 27 20 20 RT 6 RY R 53 08 09 5 1 PH BR MG AR IA MA N TA CY T BL ET #5 91 CH EW 10 02 02 00 60 30 WA 70 MU Ac 12 -1 -2 .0 L- 08 LB ti 20 7- 6- 00 MA 31 ER ve 20 20 20 RT 9 RY 31 09 09 0 PH BR AR IA MA N CY T #5 91 AD 54 02 02 00 30 30 WA 22 MU Ac DE 09 -1 -2 .0 L- 15 LB ti RA 20 2- 6- 00 MA 62 ER ve LL 38 20 20 RT 3 RY 70 09 09 XR 1 PH BR AR IA 20 MA N CY T MG #5 CA 91 PS UL E CL 00 02 02 00 30 30 WA 70 NO Ac ON 37 -0 -1 .0 L- 06 RF ti ID 80 2- 2- 00 MA 19 LE ve IN 15 20 20 RT 6 ET E 20 09 09 R HC 1 PH L AR HE 0. MA NR 1 CY Y MG #5 TA 91 BL ET 10 01 01 00 60 30 WA 70 MU Ac 12 -1 -3 .0 L- 03 LB ti 20 0- 0- 00 MA 35 ER ve 20 20 20 RT 7 RY 31 09 09 0 PH BR AR IA MA N CY T #5 91 SI 00 12 01 01 30 30 WA 69 MU Ac NG 00 -1 -1 .0 L- 99 LB ti UL 60 1- 5- 00 MA 49 ER ve AI 27 20 20 RT 6 RY R 53 08 09 5 1 PH BR MG AR IA MA N TA CY T BL ET #5 91 CH EW CL 00 10 01 02 30 30 WA 69 NO Ac ON 37 -2 -1 .0 L- 93 RF ti ID 80 7- 5- 00 MA 01 LE ve IN 15 20 20 RT 3 ET E 20 08 09 R HC 1 PH L AR HE 0. MA NR 1 CY Y MG #5 TA 91 BL ET AD 54 12 12 00 30 30 WA 22 NO Ac DE 09 -0 -1 .0 L- 15 RF ti RA 20 5- 8- 00 MA 34 LE ve LL 38 20 20 RT 9 ET 70 08 08 R XR 1 PH AR HE 20 MA NR CY Y MG #5 CA 91 PS UL E 51 10 12 01 30 30 WA 69 NO Ac 07 -2 -1 .0 L- 93 RF ti 90 7- 8- 00 MA 01 LE ve 29 20 20 RT 3 ET 96 08 08 R 3 PH AR HE MA NR CY Y #5 91 10 12 12 00 60 30 WA 69 MU Ac 12 -1 -1 .0 L- 99 LB ti 20 1- 8- 00 MA 49 ER ve 20 20 20 RT 5 RY 31 08 08 0 PH BR AR IA MA N CY T #5 91 SI 00 12 12 00 30 30 WA 69 MU Ac NG 00 -1 -1 .0 L- 99 LB ti UL 60 1- 8- 00 MA 49 ER ve AI 27 20 20 RT 6 RY R 53 08 08 5 1 PH BR MG AR IA MA N TA CY T BL ET #5 91 CH EW 51 10 11 00 30 30 WA 69 NO Ac 07 -2 -2 .0 L- 93 RF ti 90 7- 0- 00 MA 01 LE ve 29 20 20 RT 3 ET 96 08 08 R 3 PH AR HE MA NR CY Y #5 91 SI 00 06 11 04 30 30 WA 69 MU Ac NG 00 -2 -2 .0 L- 76 LB ti UL 60 3- 0- 00 MA 94 ER ve AI 27 20 20 RT 2 RY R 53 08 08 5 1 PH BR MG AR IA MA N TA CY T BL ET #5 91 CH EW AD 54 11 11 00 30 30 WA 22 MU Ac DE 09 -0 -2 .0 L- 15 LB ti RA 20 7- 0- 00 MA 18 ER ve LL 38 20 20 RT 0 RY 70 08 08 XR 1 PH BR AR IA 20 MA N CY T MG #5 CA 91 PS UL E 10 10 11 01 60 30 WA 69 MU Ac 12 -1 -2 .0 L- 91 LB ti 20 3- 0- 00 MA 13 ER ve 20 20 20 RT 3 RY 31 08 08 0 PH BR AR IA MA N CY T #5 91 AD 54 10 10 00 30 30 WA 22 NO Ac DE 09 -0 -2 .0 L- 15 RF ti RA 20 7- 3- 00 MA 01 LE ve LL 38 20 20 RT 8 ET 70 08 08 R XR 1 PH AR HE 20 MA NR CY Y MG #5 CA 91 PS UL E CL 00 09 10 00 15 30 [place] 69 NO Ac ON 37 -1 -2 .0 L- 90 RF ti ID 80 5- 3- 00 MA 72 LE ve IN 15 20 20 RT 8 ET E 20 08 08 R HC 1 PH L AR HE 0. MA NR 1 CY Y MG #5 TA 91 BL ET 10 10 10 00 60 30 [place] 69 MU Ac 12 -1 -2 .0 L- 91 LB ti 20 3- 3- 00 MA 13 ER ve 20 20 20 RT 3 RY 31 08 08 0 PH BR AR IA MA N CY T #5 91 SI 00 06 10 03 30 30 [place] 69 MU Ac NG 00 -2 -2 .0 L- 76 LB ti UL 60 3- 3- 00 MA 94 ER ve AI 27 20 20 RT 2 RY R 53 08 08 5 1 PH BR MG AR IA MA N TA CY T BL ET #5 91 CH EW SI 00 06 09 02 30 30 [place] 69 MU Ac NG 00 -2 -2 .0 L- 76 LB ti UL 60 3- 6- 00 MA 94 ER ve AI 27 20 20 RT 2 RY R 53 08 08 5 1 PH BR MG AR IA MA N TA CY T BL ET #5 91 CH EW 10 08 09 01 60 30 [place] 69 MU Ac 12 -0 -2 .0 L- 82 LB ti 20 5- 6- 00 MA 06 ER ve 20 20 20 RT 4 RY 31 08 08 0 PH BR AR IA MA N CY T #5 91 AD 54 08 09 00 30 30 [place] 22 MU Ac DE 09 -2 -1 .0 L- 14 LB ti RA 20 9- 1- 00 MA 84 ER ve LL 38 20 20 RT 8 RY 70 08 08 XR 1 PH BR AR IA 20 MA N CY T MG #5 CA 91 PS UL E 10 08 08 00 60 30 [place] 69 MU Ac 12 -0 -1 .0 L- 82 LB ti 20 5- 4- 00 MA 06 ER ve 20 20 20 RT 4 RY 31 08 08 0 PH BR AR IA MA N CY T #5 91 SI 00 06 08 01 30 30 [place] 69 MU Ac NG 00 -2 -1 .0 L- 76 LB ti UL 60 3- 4- 00 MA 94 ER ve AI 27 20 20 RT 2 RY R 53 08 08 5 1 PH BR MG AR IA MA N TA CY T BL ET #5 91 CH EW AD 54 07 08 00 30 30 [place] 22 NO Ac DE 09 -2 -1 .0 L- 14 RF ti RA 20 9- 4- 00 MA 69 LE ve LL 38 20 20 RT 3 ET 70 08 08 R XR 1 PH AR HE 20 MA NR CY Y MG #5 CA 91 PS UL E SI 00 06 07 00 30 30 [place] 69 MU Ac NG 00 -2 -0 .0 L- 76 LB ti UL 60 3- 3- 00 MA 94 ER ve AI 27 20 20 RT 2 RY R 53 08 08 5 1 PH BR MG AR IA MA N TA CY T BL ET #5 91 CH EW AD 54 06 07 00 30 30 WA 22 MU Ac DE 09 -1 -0 .0 L- 14 LB ti RA 20 6- 3- 00 MA 49 ER ve LL 38 20 20 RT 8 RY 70 08 08 XR 1 PH BR AR IA 20 MA N CY T MG #5 CA 91 PS UL E 10 05 07 01 60 30 [place] 69 No Ac 12 -2 -0 .0 L- 72 t ti 20 0- 3- 00 MA 65 Av ve 20 20 20 RT 4 ai 31 08 08 la 0 PH bl AR e MA CY #5 91 10 05 06 00 60 30 [place] 69 No Ac 12 -2 -0 .0 L- 72 t ti 20 0- 5- 00 MA 65 Av ve 20 20 20 RT 4 ai 31 08 08 la 0 PH bl AR e MA CY #5 91 00 05 06 00 14 30 WA 69 MU Ac 59 -2 -0 .6 L- 73 LB ti 70 8- 5- 99 MA 69 ER ve 01 20 20 RT 0 RY 31 08 08 4 PH BR AR IA MA N CY T #5 91 SI 00 01 06 04 30 30 [place] 69 MU Ac NG 00 -0 -0 .0 L- 54 LB ti UL 60 7- 5- 00 MA 98 ER ve AI 27 20 20 RT 1 RY R 53 08 08 5 1 PH BR MG AR IA MA N TA CY T BL ET #5 91 CH EW AD 54 05 05 00 30 30 WA 22 No Ac DE 09 -1 -2 .0 L- 14 t ti RA 20 6- 2- 00 MA 34 Av ve LL 38 20 20 RT 2 ai 70 08 08 la XR 1 PH bl AR e 20 MA CY MG #5 CA 91 PS UL E 59 04 05 00 11 11 [place] 69 No Ac 70 -1 -0 8. L- 68 t ti 20 8- 8- 00 MA 64 Av ve 14 20 20 0 RT 9 ai 10 08 08 la 4 PH bl AR e MA CY #5 91 SI 00 01 04 03 30 30 [place] 69 No Ac NG 00 -0 -2 .0 L- 54 t ti UL 60 7- 4- 00 MA 98 Av ve AI 27 20 20 RT 1 ai R 53 08 08 la 5 1 PH bl MG AR e MA TA CY BL ET #5 91 CH EW AD 54 04 04 00 30 30 [place] 22 No Ac DE 09 -0 -2 .0 L- 14 t ti RA 20 7- 4- 00 MA 16 Av ve LL 38 20 20 RT 4 ai 70 08 08 la XR 1 PH bl AR e 20 MA CY MG #5 CA 91 PS UL E 50 03 04 00 15 30 [place] 69 No Ac 58 -1 -1 0. L- 63 t ti 00 1- 7- 00 MA 62 Av ve 72 20 20 0 RT 9 ai 41 08 08 la 0 PH bl AR e MA CY #5 91 SI 00 01 04 69 No Ac NG 00 -0 -1 .0 L- 54 t ti UL 60 7- 7- 00 MA 98 Av ve AI 27 20 20 RT 1 ai R 53 08 08 la 5 1 PH bl MG AR e MA TA CY BL ET #5 91 CH EW AD 54 03 04 22 No Ac DE 09 -0 -0 .0 L- 14 t ti RA 20 6- 7- 00 MA 01 Av ve LL 38 20 20 RT 0 ai 70 08 08 la XR 1 PH bl AR e 20 MA CY MG #5 CA 91 PS UL E AD 54 02 03 22 No Ac DE 09 -0 -2 .0 L- 13 t ti RA 20 7- 6- 00 MA 86 Av ve LL 38 20 20 RT 9 ai 70 08 08 la XR 1 PH bl AR e 20 MA CY MG #5 CA 91 PS UL E SI 00 01 03 69 No Ac NG 00 -0 -2 .0 L- 54 t ti UL 60 7- 6- 00 MA 98 Av ve AI 27 20 20 RT 1 ai R 53 08 08 la 5 1 PH bl MG AR e MA TA CY BL ET #5 91 CH EW CL 00 11 03 69 No Ac ON 37 -2 -2 .0 L- 49 t ti ID 80 6- 6- 00 MA 90 Av ve IN 15 20 20 RT 3 ai E 20 07 08 la HC 1 PH bl L AR e 0. MA 1 CY MG #5 TA 91 BL ET 50 02 03 69 No Ac 58 -0 -2 0. L- 59 t ti 00 6- 6- 00 MA 15 Av ve 72 20 20 0 RT 8 ai 41 08 08 la 0 PH bl AR e MA CY #5 91 DE 00 01 03 22 No Ac XM 09 -3 -2 .0 L- 13 t ti ET 35 1- 6- 00 MA 84 Av ve HY 27 20 20 RT 0 ai LP 60 08 08 la HE 1 PH bl NI AR e DA MA TE CY 5 #5 MG 91 TA B 00 09 03 03 15 30 [place] 69 No Ac 06 -2 -2 0. L- 42 t ti 95 4- 4- 00 MA 64 Av ve 53 20 20 0 RT 9 ai 04 07 08 la 7 PH bl AR e MA CY #5 91 SI 00 01 03 00 30 30 [place] 69 No Ac NG 00 -0 -2 .0 L- 54 t ti UL 60 7- 4- 00 MA 98 Av ve AI 27 20 20 RT 1 ai R 53 08 08 la 5 1 PH bl MG AR e MA TA CY BL ET #5 91 CH EW FO 00 12 03 00 30 30 [place] 22 No Ac CA 07 -2 -2 .0 L- 13 t ti LI 80 6- 4- 00 MA 72 Av ve N 43 20 20 RT 2 ai XR 20 07 08 la 5 PH bl 20 AR e MA MG CY CA #5 PS 91 UL E Vital Signs 05-01-2012 16:47 Name Value Interpretat Reference Comment ion Range BP 73 mm[Hg] Diastolic BP Systolic 124 mm[Hg] Heart 113 /min Rate/Pulse O2% 98 % Respiratory 20 /min Rate 05-01-2012 16:46 Name Value Interpretat Reference Comment ion Range BP 73 mm[Hg] Diastolic BP Systolic 124 mm[Hg] Heart 113 /min Rate/Pulse O2% 98 % Respiratory 20 /min Rate Results Labs Lab Lab Date Result Refere Interp Status Commen Order Detail nces retati t Range on CHLAMYDIA AND GONORRHEA TESTING (09-29-2011 11:45) Chlamyd NEGATIV complet ia 012 E ed trachom 11:45 atis rRNA [Presen ce] in Unspeci fied specime n by Probe & target amplifi cation method Neisser NEGATIV complet ia 012 E ed gonorrh 11:45 oeae rRNA [Presen ce] in Unspeci fied specime n by Probe & target amplifi cation method CHLAMYDIA AND GONORRHEA TESTING (09-29-2011 11:45) COLLECT NA complet OR 012 ed 11:45 ETHNICI WHITE, complet TY 012 NON-HIS ed 11:45 PANIC KIT complet EXPIRAT 012 2 ed ION 11:45 DATE SYMPTOM NO complet S 012 ed 11:45 REASON INITIAL complet FOR 012 FAMILY ed REQUEST 11:45 PLANNIN G VISIT SPECIME URINE complet N 012 ed SOURCE 11:45 PREGNAN NO complet T 012 ed 11:45 CHART NA complet NUMBER 012 ed 11:45 Chlamyd Pending complet ia 012 ed trachom 11:45 atis rRNA [Presen ce] in Unspeci fied specime n by Probe & target amplifi cation method Neisser Pending complet ia 012 ed gonorrh 11:45 oeae rRNA [Presen ce] in Unspeci fied specime n by Probe & target amplifi cation method Procedures Procedure DOS Code Location Performer Comment APPLICATI 93.54 MARY LAKHANI SPLINT Encounters Encounter Start End Date Code Location Performer Type Date Emergency JACKIE ISSA (ER) 3 16:22 3 16:47 [facility] [place] [facility]
--- OUTSIDE RECORDS SUMMARY | 2017-01-29 01:45 | External Medical Summary Rpt | CCD ---
Author Author , MELO ALEJO Address Unknown Phone Care Team Providers Care Manager Msw Name Role Phone MARY ISSA, Unavailable Unavailable MARY ISSA [facility], Unavailable Unavailable [facility] KAPLAN, Unavailable Unavailable [facility] Unavailable Unavailable [facility] Unavailable Unavailable [facility], [facility] Unavailable Unavailable [facility], [facility] TANVIR SANDERS, TANVIR Unavailable Unavailable [facility] Unavailable Unavailable #[id number], [facility] # Unavailable Unavailable [id number], [facility] # [id number] Purpose Continuity of Care Document - 03-24-2007 through 2016 Problems Code Diagnosis DOS Provider Status 845.00 845.00 05-01-2012 [place] SPRAIN OF [facility] E849.8 E849.8 05-01-2012 [place] ACCIDENT IN [facility] E927.0 E927.0 05-01-2012 [place] OVEREXERTIO [facility] SUDDEN STRENUOUS MOVEMENT 3671 MYOPIA 05-21-2011 TANVIR SANDERS [id number] GENERALIZED 05-05-2010 [place] PAIN [facility] 462 ACUTE 05-02-2010 [place] [facility]IS [facility] 7295 PAIN IN 02-10-2010 [place] SOFT [facility] [employer] [facility] [employer] [place] 7840 HEADACHE 01-21-2010 [place] CO [facility] 47496 INJURY OF 11-05-2009 [place] [facility] F[facility] OTHER [facility] AND UNSPECIFIED 01398 UNSPECIFIED 07-28-2007 [employer] [facility] INC SPRAIN AND STRAIN 48419 SPRAIN AND 07-28-2007 [place] STRAIN OF MEDICAL UNSPECIFIED IMAGING SITE OF ASSOCIATES FOOT E8498 OTHER 07-28-[address] [place] [address] [facility]CC[facility]ENCE [facility] E8840 ACCIDENTAL 07-28-2007 [place] FALL FROM MEDICAL PLAYGROUND IMAGING EQUIPMENT [facility] V202 ROUTINE 06-15-2007 [facility] INFANT OR HEALTH [facility] ACCT CHECK 9198 OTH&UNS SUP 05-30-2007 [facility]/CO [facility] MX&UNS SITE CENTRAL W/O BANK ACCT [...] JACKIE ISSA (ER) 3 16:22 3 16:47 [facility] [place] - [facility] T
--- OUTSIDE RECORDS SUMMARY | 2017-01-29 01:51 | External Medical Summary Rpt | CCD ---
Author Author , MELO ALEJO Address Unknown Phone [email or web address] Care Team Providers Care Brokerage Branch Manager Name Role Phone [facility], Unavailable Unavailable [facility] WESLEY KAPLAN, Unavailable Unavailable [facility] Unavailable Unavailable [facility] [employer] [facility] Unavailable Unavailable INC, [facility] Unavailable Unavailable [facility], [facility] SCIFRES ANG, SCIFRES Unavailable Unavailable [facility] Unavailable Unavailable #591, [facility] # Unavailable Unavailable [id number], [facility] # [id number] Purpose Continuity of Care Document - 03-24-2007 through 2016 Problems Code Diagnosis DOS Provider Status 3671 MYOPIA 05-21-2011 TANVIR SANDERS [id number] GENERALIZED 05-05-2010 [facility] PAIN [facility] 462 ACUTE 05-02-2010 [facility] PHARYNGITIS [facility] 7295 PAIN IN 02-10-2010 [facility] SOFT MIDDLE TISSUES OF S[employer] LIMB 7840 HEADACHE 01-21-2010 [facility] 31615 INJURY OF 11-05-2009 [place] [facility] OTHER [facility] AND UNSPECIFIED 73903 UNSPECIFIED 07-28-2007 [facility] SPRAIN AND STRAIN 14467 SPRAIN AND 07-28-2007 [place] STRAIN OF MEDICAL UNSPECIFIED IMAGING SITE OF ASSOCIATES FOOT E8498 OTHER 07-28-[address] [place] [address] OF [facility]CC[facility]RENCE [facility] E8840 ACCIDENTAL 07-28-2007 [place] FALL FROM MEDICAL PLAYGROUND [facility]ING EQUIPMENT [facility] V202 ROUTINE 06-15-2007 [facility] INFANT OR HEALTH CHILD [facility] ACCT CHECK 9198 OTH&UNS SUP 05-30-2007 [facility]/CO INJR [facility] MX&UNS SITE CENTRAL W/O BANK ACCT MENTION INF 9199 OTH&UNSPEC 03-24-2007 DHS/CO SUP INJURY HEALTH OTH CENTRAL MX&UNSPEC BANK ACCT SITES INF Medications Na ND Rx Da Fi Fi Am Da Di Ph RX Ph St me C No te ll ll ou ys ag ar # ys at rm s nt no ma ic us Or Da si cy ia de te s n re d SI 00 04 10 5 30 30 CL 23 MU Ac NG 00 -2 -2 .0 IN 74 LB ti UL 60 9- 5- 00 IC 73 ER ve AI 27 20 20 RY R 55 11 11 PH 5 4 AR BR MG MA IA CY N TA T BL LL ET C CH EW ST 00 05 10 5 30 30 CL 23 MU Ac RA 00 -1 -2 .0 IN 82 LB ti TT 23 0- 5- 00 IC 47 ER ve ER 23 20 20 RY A 83 11 11 PH 18 0 AR BR MA IA MG CY N T CA LL PS C UL E SI 00 04 09 5 30 30 [...] T MG LL C TA BL ET AD 54 07 07 0 30 30 CL 24 MU Ac DE 09 -2 -2 .0 IN 25 LB ti RA 20 2- 2- 00 IC 28 ER ve LL 38 20 20 RY 70 11 11 PH XR 1 AR BR MA IA 20 CY N T MG LL C CA PS UL E ST 00 05 07 5 30 30 CL 23 MU Ac RA 00 -1 -2 .0 IN 82 LB ti TT 23 0- 2- 00 IC 47 ER ve ER 23 20 20 RY A 83 11 11 PH 18 0 AR BR MA IA MG CY N T CA LL PS C UL E SI 00 04 07 5 [...] Y C TA BL ET ST 00 05 05 0 30 30 CL 23 MU Ac RA 00 -1 -1 .0 IN 82 LB ti TT 23 0- 0- 00 IC 47 ER ve ER 23 20 20 RY A 83 11 11 PH 18 0 AR BR MA IA MG CY N T CA LL PS C UL E AD 54 05 05 0 30 30 CL 23 MU Ac DE 09 -1 -1 .0 IN 82 LB ti RA 20 0- 0- 00 IC 46 ER ve LL 38 20 20 RY 70 11 11 PH XR 1 AR BR MA IA 20 CY N T MG LL C CA PS UL E SI 00 04 04 5 [...] LL ET C CH EW SI 00 10 02 5 30 30 CL 22 MU Ac NG 00 -1 -2 .0 IN 47 LB ti UL 60 1- 3- 00 IC 56 ER ve AI 27 20 20 RY R 55 10 11 PH 5 4 AR BR MG MA IA CY N TA T BL LL ET C CH EW CL 00 10 02 5 30 30 CL 22 MU Ac ON 37 -1 -2 .0 IN 47 LB ti ID 80 1- 3- 00 IC 55 ER ve IN 15 20 20 RY E 20 10 11 PH HC 1 AR BR L MA IA 0. CY N 1 T MG LL C TA BL ET ST 00 02 02 1 30 30 CL 23 HOYT Ac RA 00 -2 -2 .0 IN 33 MM ti TT 23 3- 3- 00 IC 55 ON ve ER 23 20 20 D A 83 11 11 PH KA 18 0 AR TH MA AR MG CY IN E CA LL Y PS C UL E AD 54 02 02 0 30 30 [...] Y PS C UL E AD 54 01 01 0 30 30 CL 23 CO Ac DE 09 -2 -2 .0 IN 13 OP ti RA 20 6- 6- 00 IC 63 ER ve LL 38 20 20 70 11 11 PH DANNY XR 1 AR HN MA G 20 CY MG LL C CA PS UL E CL 00 10 01 5 [...] LL ET C CH EW AD 54 11 11 0 30 30 CL 22 MU Ac DE 09 -1 -1 .0 IN 71 LB ti RA 20 8- 8- 00 IC 23 ER ve LL 38 20 20 RY 70 10 10 PH XR 1 AR BR MA IA 20 CY N T MG LL C CA PS UL E ST 00 11 11 0 30 30 CL 22 MU Ac RA 00 -1 -1 .0 IN 71 LB ti TT 23 8- 8- 00 IC 22 ER ve ER 23 20 20 RY A 83 10 10 PH 18 0 AR BR MA IA MG CY N T CA LL PS C UL E CL 00 10 11 5 [...] CA PS UL E ST 00 05 09 5 30 30 [...] 10 CH 05 EW 91 CL 00 07 09 1 30 30 [place] 70 NO Ac ON 37 -3 -1 .0 L- 80 RF ti ID 80 0- 3- 00 MA 32 LE ve IN 15 20 20 RT 7 ET E 20 10 10 R HC 1 PH L AR HE 0. MA NR 1 CY Y MG # TA 10 BL 05 ET 91 AD 54 07 08 0 30 30 WA 22 MU Ac DE 09 -3 -0 .0 L- 18 LB ti RA 20 0- 5- 00 MA 41 ER ve LL 38 20 20 RT 2 RY 70 10 10 XR 1 PH BR AR IA 20 MA N CY T MG # CA 10 PS 05 UL 91 E SI 00 06 07 2 30 30 WA 70 MU Ac NG 00 -2 -3 .0 L- 76 LB ti UL 60 6- 0- 00 MA 26 ER ve AI 27 20 20 RT 4 RY R 53 10 10 5 1 PH BR MG AR IA MA N TA CY T BL # ET 10 CH [address] 00 05 07 5 30 30 WA 70 MU Ac RA 00 -1 -3 .0 L- 71 LB ti TT 23 7- 0- 00 MA 03 ER ve ER 23 20 20 RT 7 RY A 83 10 10 18 0 PH BR AR IA MG MA N CY T CA # PS UL 10 E 05 91 CL 00 07 07 1 30 30 WA 70 NO Ac ON 37 -3 -3 .0 L- 80 RF ti ID 80 0- 0- 00 MA 32 LE ve IN 15 20 20 RT 7 ET E 20 10 10 R HC 1 PH L AR HE 0. MA NR 1 CY Y MG # TA 10 BL 05 ET 91 AD 54 06 07 0 30 [...] [address] 00 05 05 5 30 30 WA 70 MU Ac RA 00 -1 -1 .0 L- 71 LB ti TT 23 7- 7- 00 MA 03 ER ve ER 23 20 20 RT 7 RY A 83 10 10 18 0 PH BR AR IA MG MA N CY T CA # PS UL 10 E 05 91 CL 00 03 05 3 30 30 [...] 10 CH 05 EW 91 AD 54 04 04 0 30 30 WA 22 MU Ac DE 09 -1 -2 .0 L- 17 LB ti RA 20 9- 0- 00 MA 79 ER ve LL 38 20 20 RT 3 RY 70 10 10 XR 1 PH BR AR IA 20 MA N CY T MG # CA 10 PS [address] 00 11 04 5 30 30 [place] 70 NO Ac RA 00 -1 -2 .0 L- 45 RF ti TT 23 3- 0- 00 MA 58 LE ve ER 23 20 20 RT 3 ET A 83 09 10 R 18 0 PH AR HE MG MA NR CY Y CA # PS UL 10 E 05 91 CL 00 03 04 3 30 30 [...] CA 10 PS 05 UL 91 E SI 00 02 03 3 30 30 [...] N CY T # [address] 00 11 03 5 30 30 [...] # TA 10 BL 05 ET 91 CL 00 09 02 05 30 [...] N CY T #5 91 SI 00 02 02 00 30 30 WA 70 MU Ac NG 00 -1 -2 .0 L- 58 LB ti UL 60 2- 6- 00 MA 35 ER ve AI 27 20 20 RT 7 RY R 53 10 10 5 1 PH BR MG AR IA MA N TA CY T BL ET #5 91 CH EW AD 54 02 02 30 30 WA 22 MU Ac DE 09 -1 -2 .0 L- 17 LB ti RA 20 2- 6- 00 MA 48 ER ve LL 38 20 20 RT 4 RY 70 10 10 XR 1 PH BR AR IA 20 MA N CY T MG #5 CA 91 PS UL E AD 54 01 30 30 WA 22 MU Ac DE 09 -1 -2 .0 L- 17 LB ti RA 20 3- 8- 00 MA 32 ER ve LL 38 20 20 RT 6 RY 70 10 10 XR 1 PH BR AR IA 20 MA N CY T MG #5 CA 91 PS UL E 68 01 30 30 WA 70 MU Ac 04 -1 -2 .0 L- 54 LB ti 70 5- 8- 00 MA 50 ER ve 12 20 20 RT 0 RY 10 10 10 1 PH BR AR IA MA N CY T #[address] 00 11 01 02 30 30 WA 70 NO Ac RA 00 -1 -2 .0 L- 45 RF ti TT 23 3- 8- 00 MA 58 LE ve ER 23 20 20 RT 3 ET A 83 09 10 R 18 0 PH AR HE MG MA NR CY Y CA PS #5 UL 91 E CL 00 09 01 04 30 30 WA 70 NO Ac ON 37 -0 -2 .0 L- 35 RF ti ID 80 5- 8- 00 MA 54 LE ve IN 15 20 20 RT 4 ET E 20 09 10 R HC 1 PH L AR HE 0. MA NR 1 CY Y MG #5 TA 91 BL ET SI 00 06 04 30 30 WA 70 MU Ac NG 00 -2 -1 .0 L- 26 LB ti UL 60 5- 4- 00 MA 12 ER ve AI 27 20 20 RT 3 RY R 53 09 10 5 1 PH BR MG AR IA MA N TA CY T BL ET #5 91 CH EW AD 54 12 12 00 30 30 WA 22 CO Ac DE 09 -1 -3 .0 L- 17 OP ti RA 20 2- 1- 00 MA 17 ER ve LL 38 20 20 RT 7 70 09 09 DANNY XR 1 PH HN AR G 20 MA CY MG #5 CA 91 PS UL E 68 12 12 00 30 30 WA 70 MU Ac 04 -0 -3 .0 L- 49 LB ti 70 9- 1- 00 MA 38 ER ve 12 20 20 RT 9 RY 10 09 09 1 PH BR AR IA MA N CY T #5 91 SI 00 06 12 03 30 30 [...] Y CA PS #[address] 00 11 11 00 30 30 [...] #5 TA 91 BL ET AD 54 11 11 00 30 30 WA 22 NO Ac DE 09 -1 -1 .0 L- 17 RF ti RA 20 3- 9- 00 MA 00 LE ve LL 38 20 20 RT 5 ET 70 09 09 R XR 1 PH AR HE 20 MA NR CY Y MG #5 CA 91 PS UL E 68 09 11 00 30 30 [...] BL ET #5 91 CH EW 68 09 09 00 30 30 WA 70 MU Ac 04 -1 -2 .0 L- 36 LB ti 70 0- 4- 00 MA 26 ER ve 12 20 20 RT 5 RY 10 09 09 1 PH BR AR IA MA N CY T #5 91 AD 54 09 09 00 30 30 WA 22 NO Ac DE 09 -0 -2 .0 L- 16 RF ti RA 20 5- 4- 00 MA 67 LE ve LL 38 20 20 RT 3 ET 70 09 09 R XR 1 PH AR HE 20 MA NR CY Y MG #5 CA [address] 00 09 09 00 30 30 WA 70 NO Ac RA 00 -0 -2 .0 L- 35 RF ti TT 23 5- 4- 00 MA 54 LE ve ER 23 20 20 RT 5 ET A 83 09 09 R 18 0 PH AR HE MG MA NR CY Y CA PS #5 UL 91 E CL 00 09 09 00 30 30 WA 70 NO Ac ON 37 -0 -2 .0 L- 35 RF ti ID 80 5- 4- 00 MA 54 LE ve IN 15 20 20 RT 4 ET E 20 09 09 R HC 1 PH L AR HE 0. MA NR 1 CY Y MG #5 TA 91 BL ET AD 54 07 08 00 30 30 [...] IA MA N CY T #5 91 10 05 07 02 60 30 WA [...] #5 91 CH EW AD 54 05 06 00 30 30 [...] N CY T #5 91 AD 54 04 05 00 30 30 [...] BL ET #5 91 CH EW 51 02 04 01 30 30 WA 70 MU Ac 07 -1 -2 .0 L- 07 LB ti 90 2- 3- 00 MA 83 ER ve 29 20 20 RT 4 RY 96 09 09 3 PH BR AR IA MA N CY T #5 91 10 03 03 00 60 30 WA 70 MU Ac 12 -1 -2 .0 L- 11 LB ti 20 2- 6- 00 MA 96 ER ve 20 20 20 RT 3 RY 31 09 09 0 PH BR AR IA MA N CY T #5 91 AD 54 03 03 00 30 30 WA 22 MU Ac DE 09 -1 -2 .0 L- 15 LB ti RA 20 6- 6- 00 MA 80 ER ve LL 38 20 20 RT 3 RY 70 09 09 XR 1 PH BR AR IA 20 MA N CY T MG #5 CA 91 PS UL E SI 00 12 03 03 30 30 WA 69 MU Ac NG 00 -1 -2 .0 L- 99 LB ti UL 60 1- 6- 00 MA 49 ER ve AI 27 20 20 RT 6 RY R 53 08 09 5 1 PH BR MG AR IA MA N TA CY T BL ET #5 91 CH EW 51 02 03 00 30 30 WA [...] NT CY T ME NT #5 91 AD 54 02 02 00 30 30 WA 22 MU Ac DE 09 -1 -2 .0 L- 15 LB ti RA 20 2- 6- 00 MA 62 ER ve LL 38 20 20 RT 3 RY 70 09 09 XR 1 PH BR AR IA 20 MA N CY T MG #5 CA 91 PS UL E 10 02 02 00 60 30 WA 70 MU Ac 12 -1 -2 .0 L- 08 LB ti 20 7- 6- 00 MA 31 ER ve 20 20 20 RT 9 RY 31 09 09 0 PH BR AR IA MA N CY T #5 91 SI 00 12 02 02 30 30 WA 69 MU Ac NG 00 -1 -2 .0 L- 99 LB ti UL 60 1- 6- 00 MA 49 ER ve AI 27 20 20 RT 6 RY R 53 08 09 5 1 PH BR MG AR IA MA N TA CY T BL ET #5 91 CH EW CL 00 02 02 00 30 30 [...] N CY T #5 91 CL 00 10 01 02 30 30 WA 69 NO Ac ON 37 -2 -1 .0 L- 93 RF ti ID 80 7- 5- 00 MA 01 LE ve IN 15 20 20 RT 3 ET E 20 08 09 R HC 1 PH L AR HE 0. MA NR 1 CY Y MG #5 TA 91 BL ET SI 00 12 01 01 30 30 WA 69 MU Ac NG 00 -1 -1 .0 L- 99 LB ti UL 60 1- 5- 00 MA 49 ER ve AI 27 20 20 RT 6 RY R 53 08 09 5 1 PH BR MG AR IA MA N TA CY T BL ET #5 91 CH EW SI 00 12 12 00 30 30 WA 69 MU Ac NG 00 -1 -1 .0 L- 99 LB ti UL 60 1- 8- 00 MA 49 ER ve AI 27 20 20 RT 6 RY R 53 08 08 5 1 PH BR MG AR IA MA N TA CY T BL ET #5 91 CH EW 10 12 12 00 60 30 WA [...] HE MA NR CY Y #5 91 51 10 11 00 30 30 WA 69 NO Ac 07 -2 -2 .0 L- 93 RF ti 90 7- 0- 00 MA 01 LE ve 29 20 20 RT 3 ET 96 08 08 R 3 PH AR HE MA NR CY Y #5 91 10 10 11 01 60 30 WA 69 MU Ac 12 -1 -2 .0 L- 91 LB ti 20 3- 0- 00 MA 13 ER ve 20 20 20 RT 3 RY 31 08 08 0 PH BR AR IA MA N CY T #5 91 SI 00 06 11 04 [...] CA 91 PS UL E 10 10 10 00 60 30 WA [...] #5 91 CH EW CL 00 09 10 00 15 30 WA 69 NO Ac ON 37 -1 -2 .0 L- 90 RF ti ID 80 5- 3- 00 MA 72 LE ve IN 15 20 20 RT 8 ET E 20 08 08 R HC 1 PH L AR HE 0. MA NR 1 CY Y MG #5 TA 91 BL ET AD 54 10 10 00 30 30 WA 22 NO Ac DE 09 -0 -2 .0 L- 15 RF ti RA 20 7- 3- 00 MA 01 LE ve LL 38 20 20 RT 8 ET 70 08 08 R XR 1 PH AR HE 20 MA NR CY Y MG #5 CA 91 PS UL E 10 08 09 01 60 30 WA 69 MU Ac 12 -0 -2 .0 L- 82 LB ti 20 5- 6- 00 MA 06 ER ve 20 20 20 RT 4 RY 31 08 08 0 PH BR AR IA MA N CY T #5 91 SI 00 06 09 02 30 30 WA 69 MU Ac NG 00 -2 -2 .0 L- 76 LB ti UL 60 3- 6- 00 MA 94 ER ve AI 27 20 20 RT 2 RY R 53 08 08 5 1 PH BR MG AR IA MA N TA CY T BL ET #5 91 CH EW AD 54 08 09 00 30 30 [...] CA 91 PS UL E AD 54 06 07 00 30 30 [...] #5 91 CH EW 10 05 07 01 60 30 WA [...] MA CY #5 91 SI 00 01 06 04 30 30 WA 69 MU Ac NG 00 -0 -0 .0 L- 54 LB ti UL 60 7- 5- 00 MA 98 ER ve AI 27 20 20 RT 1 RY R 53 08 08 5 1 PH BR MG AR IA MA N TA CY T BL ET #5 91 CH EW 00 05 06 00 14 30 WA 69 MU Ac 59 -2 -0 .6 L- 73 LB ti 70 8- 5- 99 MA 69 ER ve 01 20 20 RT 0 RY 31 08 08 4 PH BR AR IA MA N CY T #5 91 AD 54 05 05 00 30 30 [...] bl AR e MA CY #5 91 AD 54 04 04 00 30 30 22 No Ac DE 09 -0 -2 .0 L- 14 t ti RA 20 7- 4- 00 MA 16 Av ve LL 38 20 20 RT 4 ai 70 08 08 la XR 1 PH bl AR e 20 MA CY MG #5 CA 91 PS UL E SI 00 01 04 03 30 30 [place] 69 No Ac NG 00 -0 -2 .0 L- 54 t ti UL 60 7- 4- 00 MA 98 Av ve AI 27 20 20 RT 1 ai R 53 08 08 la 5 1 PH bl MG AR e MA TA CY BL ET #5 91 CH EW SI 00 01 04 02 30 WA 69 No Ac NG 00 -0 -1 .0 L- 54 t ti UL 60 7- 7- 00 MA 98 Av ve AI 27 20 20 RT 1 ai R 53 08 08 la 5 1 PH bl MG AR e MA TA CY BL ET #5 91 CH EW 50 03 04 00 15 30 69 No Ac 58 -1 -1 0. L- 63 t ti 00 1- 7- 00 MA 62 Av ve 72 20 20 0 RT 9 ai 41 08 08 la 0 PH bl AR e MA CY #5 91 AD 54 03 04 00 30 30 22 No Ac DE 09 -0 -0 .0 L- 14 t ti RA 20 6- 7- 00 MA 01 Av ve LL 38 20 20 RT 0 ai 70 08 08 la XR 1 PH bl AR e 20 MA CY MG #5 CA 91 PS UL E CL 00 11 03 02 30 69 No Ac ON 37 -2 -2 .0 L- 49 t ti ID 80 6- 6- 00 MA 90 Av ve IN 15 20 20 RT 3 ai E 20 07 08 la HC 1 PH bl L AR e 0. MA 1 CY MG #5 TA 91 BL ET DE 00 01 03 00 30 30 22 No Ac XM 09 -3 -2 .0 L- 13 t ti ET 35 1- 6- 00 MA 84 Av ve HY 27 20 20 RT 0 ai LP 60 08 08 la HE 1 PH bl NI AR e DA MA TE CY 5 #5 MG 91 TA B SI 00 01 03 01 30 30 [place] 69 No Ac NG 00 -0 -2 .0 L- 54 t ti UL 60 7- 6- 00 MA 98 Av ve AI 27 20 20 RT 1 ai R 53 08 08 la 5 1 PH bl MG AR e MA TA CY BL ET #5 91 CH EW AD 54 02 03 00 30 30 WA 22 No Ac DE 09 -0 -2 .0 L- 13 t ti RA 20 7- 6- 00 MA 86 Av ve LL 38 20 20 RT 9 ai 70 08 08 la XR 1 PH bl AR e 20 MA CY MG #5 CA 91 PS UL E 50 02 03 00 15 30 WA 69 No Ac 58 -0 -2 0. L- 59 t ti 00 6- 6- 00 MA 15 Av ve 72 20 20 0 RT 8 ai 41 08 08 la 0 PH bl AR e MA CY #5 91 FO 00 12 03 00 30 30 WA 22 No Ac CA 07 -2 -2 .0 L- 13 t ti LI 80 6- 4- 00 MA 72 Av ve N 43 20 20 RT 2 ai XR 20 07 08 la 5 PH bl 20 AR e MA MG CY CA #5 PS 91 UL E SI 00 01 03 00 30 30 WA 69 No Ac NG 00 -0 -2 .0 L- 54 t ti UL 60 7- 4- 00 MA 98 Av ve AI 27 20 20 RT 1 ai R 53 08 08 la 5 1 PH bl MG AR e MA TA CY BL ET #5 91 CH EW 00 09 03 03 15 30 WA 69 No Ac 06 -2 -2 0. L- 42 t ti 95 4- 4- 00 MA 64 Av ve 53 20 20 0 RT 9 ai 04 07 08 la 7 PH bl AR e MA CY #5 91 Encounters Encounter Start End Date Code Location Performer Type Date [facility] - 8 8 [facility] T
--- OUTSIDE RECORDS SUMMARY | 2017-01-29 01:51 | External Medical Summary Rpt | CCD ---
Author Author , MELO ALEJO Address Unknown Phone [email or web address] Care Team Providers Care Advertising Copy Writer Name Role Phone [facility], Unavailable Unavailable [facility], Unavailable Unavailable [facility] Unavailable Unavailable [facility] Un[facility] Unavailable [facility], [facility] [place] Unavailable Unavailable [facility] [place] [facility], [facility] Unavailable Unavailable [facility] Unavailable Unavailable [id number], [id number] # Unavailable Unavailable [id number], [facility] # [id number] Purpose Continuity of Care Document - 03-24-2007 through 2016 Problems Code Diagnosis DOS Provider Status 3671 MYOPIA 05-21-2011 TANVIR SANDERS [id number] GENERALIZED 05-05-2010 [facility] 462 ACUTE 05-02-2010 [facility] PHARYNGITIS [facility] 7295 PAIN IN 02-10-2010 [facility] SOFT [facility] [employer] [facility] [employer] LIMB 7840 HEADACHE 01-21-2010 [facility] [address]3920 INJURY OF 11-05-2009 [facility] OTHER SCHOOL AND UNSPECIFIED 57584 UNSPECIFIED 07-28-2007 [facility] SPRAIN AND STRAIN [id number] SPRAIN AND 07-28-2007 [place] STRAIN OF MEDICAL UNSPECIFIED IMAGING SITE OF ASSOCIATES FOOT E8498 OTHER 07-28-[address] [place] [address] [facility] OF [facility] OCCURRENCE [facility] E8840 ACCIDENTAL 07-28-2007 [place] FALL FROM MEDICAL PLAYGROUND [facility]MENT [facility] [...] End Date Code Location Performer Type Date [facility] T
--- OUTSIDE RECORDS SUMMARY | 2017-01-29 01:53 | External Medical Summary Rpt ---
Author Author MELO So, [employer] Organization [employer] Address Unknown Phone Unavailable Results CHLAMYDIA AND GONORRHEA TESTING Observa Value Referen Units Interpr Notes Date tion ce etation Range COLLECT NA No No No No Sep 28 OR informa informa informa informa 2012 tion in tion in tion in tion in 11:45 source source source source AM data data data data ETHNICI WHITE, No No No No Sep 28 TY NON-HIS informa informa informa informa 2012 PANIC tion in tion in tion in tion in 11:45 source source source source AM data data data data KIT 10-31-1 No No No No Sep 28 EXPIRAT 2 informa informa informa informa 2012 ION tion in tion in tion in tion in 11:45 DATE source source source source AM data data data data SYMPTOM NO No No No No Sep 28 S informa informa informa informa 2012 tion in tion in tion in tion in 11:45 source source source source AM data data data data REASON INITIAL No No No No Sep 28 FOR FAMILY informa informa informa informa 2012 REQUEST tion in tion in tion in tion in 11:45 PLANNIN source source source source AM G VISIT data data data data SPECIME URINE No No No No Sep 28 N informa informa informa informa 2012 SOURCE tion in tion in tion in tion in 11:45 source source source source AM data data data data PREGNAN NO No No No No Sep 28 T informa informa informa informa 2012 tion in tion in tion in tion in 11:45 source source source source AM data data data data CHART NA No No No No Sep 28 NUMBER informa informa informa informa 2012 tion in tion in tion in tion in 11:45 source source source source AM data data data data Chlamyd NEGATIV No No No NEGATIV Sep 28 ia E informa informa informa E 2012 trachom tion in tion in tion in RESULT= 11:45 atis source source source WITHIN AM rRNA data data data NORMAL [Presen ce] in LIMITSP Unspeci OSITIVE fied specime RESULT= n by Probe & ABNORMA target LEQUIVO ELISA amplifi RESULT= cation method INDETER MINATEU NSATISF ACTORY RESULT= INVALID Neisser NEGATIV No No No NEGATIV Sep 28 ia E informa informa informa E 2012 gonorrh tion in tion in tion in RESULT= 11:45 oeae source source source WITHIN AM rRNA data data data NORMAL [Presen ce] in LIMITSP Unspeci OSITIVE fied specime RESULT= n by Probe & ABNORMA target LEQUIVO ELISA amplifi RESULT= cation method INDETER MINATEU NSATISF ACTORY RESULT= INVALID THE APTIMA COMBO 2 ASSAY IS NOT INTENDE D FOR THE EVALUAT ION OF SUSPECT EDSEXUA L ABUSE OR FOR OTHER MEDICO- LEGAL INDICAT IONS. FOR THOSE PATIENT S FORWHOM A FALSE POSITIV E RESULT MAY HAVE ADVERSE PSYCHO- SOCIAL IMPACT, [facility] RET[facility] NG.\.br \This report contain s patient informa tion that must be protect ed in accorda nce with the Health Insuran ce Portabi lity and Account ability Act. CHLAMYDIA AND GONORRHEA TESTING Observa Value Referen Units Interpr Notes Date tion ce etation Range COLLECT NA No No No No Sep 28 OR informa informa informa informa 2012 tion in tion in tion in tion in 11:45 source source source source AM data data data data ETHNICI WHITE, No No No No Sep 28 TY NON-HIS informa informa informa informa 2012 PANIC tion in tion in tion in tion in 11:45 source source source source AM data data data data KIT 10-31-1 No No No No Sep 28 EXPIRAT 2 informa informa informa informa 2012 ION tion in tion in tion in tion in 11:45 DATE source source source source AM data data data data SYMPTOM NO No No No No Sep 28 S informa informa informa informa 2012 tion in tion in tion in tion in 11:45 source source source source AM data data data data REASON INITIAL No No No No Sep 28 FOR FAMILY informa informa informa informa 2012 REQUEST tion in tion in tion in tion in 11:45 PLANNIN source source source source AM G VISIT data data data data SPECIME URINE No No No No Sep 28 N informa informa informa informa 2012 SOURCE tion in tion in tion in tion in 11:45 source source source source AM data data data data PREGNAN NO No No No No Sep 28 T informa informa informa informa 2012 tion in tion in tion in tion in 11:45 source source source source AM data data data data CHART NA No No No No Sep 28 NUMBER informa informa informa informa 2012 tion in tion in tion in tion in 11:45 source source source source AM data data data data Chlamyd Pending No No No No Sep 28 ia informa informa informa informa 2012 trachom tion in tion in tion in tion in 11:45 atis source source source source AM rRNA data data data data [Presen ce] in Unspeci fied specime n by Probe & target amplifi cation method Neisser Pending No No No \.br\Sep 28 ia informa informa informa is 2012 gonorrh tion in tion in tion in report 11:45 oeae source source source contain AM rRNA data data data s [Presen patient ce] in Unspeci informa fied tion specime that n by must be Probe & target protect ed in amplifi accorda cation nce method with the Health Insuran ce Portabi lity and Account ability Act.
--- OUTSIDE RECORDS SUMMARY | 2017-01-29 01:53 | External Medical Summary Rpt ---
[...] MAY HAVE ADVERSE PSYCHO- SOCIAL IMPACT, [facility] NG.\.br \This report contain s [...]
--- OUTSIDE RECORDS SUMMARY | 2017-01-29 01:53 | External Medical Summary Rpt | CCD ---
Author Author , LORRIESEBASTIAN Kadeem MELO Address Unknown Phone [email or web address] Immunization Name Date Rout CVX Reac Dose Comm Prov Is Faci e tion ent ider Refu lity Give sed n Tdap 04-0 115 999 Hist H149 No H149 , 9-20 oric Adso 08 al rbed Info rmat ion - Sour ce Unsp ecif ied [place] 08-0 10 999 Hist H149 No H149 o-IP 7-20 oric V 02 al Info rmat ion - Sour ce Unsp ecif ied DTaP 08-0 107 999 Hist H149 No H149 , UF 7-20 oric 02 al Info rmat ion - Sour ce Unsp ecif ied Vari 08-0 21 999 Hist H149 No H149 cell 7-20 oric a 02 al Info rmat ion - Sour ce Unsp ecif ied MMR 08-0 3 999 Hist H149 No H149 7-20 oric 02 al Info rmat ion - Sour ce Unsp ecif ied Hib, 10-2 17 999 Hist H149 No H149 UF 6-19 oric 98 al Info rmat ion - Sour ce Unsp ecif ied DTaP 10-2 107 999 Hist H149 No H149 , UF 6-19 oric 98 al Info rmat ion - Sour ce Unsp ecif ied MMR 07-2 3 999 Hist H149 No H149 4-19 oric 98 al Info rmat ion - Sour ce Unsp ecif ied [place] 07-2 2 999 Hist H149 No H149 o-OP 4-19 oric V 98 al Info rmat ion - Sour ce Unsp ecif ied Hep 04-2 8 999 Hist H149 No H149 B, 4-19 oric ped/ 98 al adol Info rmat ion - Sour ce Unsp ecif ied DTaP 02-1 107 999 Hist H149 No H149 , UF 9-19 oric 98 al Info rmat ion - Sour ce Unsp ecif ied Hib, 02-1 17 999 Hist H149 No H149 UF - oric 98 al Info rmat ion - Sour ce Unsp ecif ied Hep 10- 8 999 Hist H149 No H149 B, 10-24 ori ped/ 97 al adol Info rmat ion - Sour ce Unsp ecif ied [place] 10- 10 999 Hist H149 No H149 o-IP - ori V 97 al Info rmat ion - Sour ce Unsp ecif ied DTaP - 107 999 Hist H149 No H149 , UF 10-24 oric 97 al Info rmat ion - Sour ce Unsp ecif ied Hib, 10- 17 999 Hist H149 No H149 UF - oric 97 al Info rmat ion - Sour ce Unsp ecif ied
--- OUTSIDE RECORDS SUMMARY | 2017-01-29 01:53 | External Medical Summary Rpt | CCD ---
Author Author , LORRIESEBASTIAN Kadeem MELO Address Unknown Phone [email or web address] Immunization Name Date Rout CVX Reac Dose [...]
[2017-01-29 02:24] LABS: URINE BILIRUBIN - DIPSTICK NEGATIVE (NEG); URINE BLOOD TRACE-LYSED (NEG)
[2017-01-29 03:56] LABS: ABO BLOOD TYPE A; RH BLOOD TYPE POSITIVE
[2017-01-29 04:02] LABS: LYMPH # 2.6 K/mm3 (0.7-4.5)
[2017-01-29 04:06] LABS: HEMOGLOBIN 12.2 g/dL (12.2-16.2)
--- NOTE | 2017-01-29 07:43 | LABOR NOTE ---
Laboring Subjective Subjective Date 01/29/17 Time 0741 Subjective: Pt is having regular contractions Laboring Objective Objective NST: Reactive Contractions: q 2-3 minutes Cervical dilation: 9 Effacement: 100% Station: +1 Membranes are: Artificially ruptured (with clear fluid) Comment: She came in last night with regular contractions. She has progressed from 4 cm to full dilation. I ruptured her membranes and the baby's head was still quite high. She has the urge to push with pushing the baby's head really doesn't come down much. As result of that we will get an epidural and see if we get the baby' s head come down with contractions and an epidural. Fetus monitoring? Yes Type: Internal and External Laboring Assessment Assessment Progressing? Yes Cephalopelvic disproportion? No Problem List: 1. Normal delivery Laboring Plan Plan Anethesia for epidural? Yes Continue to labor down? Yes Plan for ? No Continue to monitor? Yes Start pushing? No at 0743
--- NOTE | 2017-01-29 08:57 | LABOR NOTE ---
Laboring Subjective Subjective Date 01/29/17 Time 0855 Subjective: Pt is having regular contractions Laboring Objective Objective NST: Reactive Contractions: q 2-3 minutes Cervical dilation: 8-9 Effacement: 100% Station: 0 Membranes are: Artificially ruptured (with clear fluid) Fetus monitoring? Yes Type: Internal Comment: I have inserted an IUPC and clip. Laboring Assessment Assessment Progressing? Yes Cephalopelvic disproportion? No Problem List: 1. Normal delivery Laboring Plan Plan Anethesia for epidural? Yes Continue to labor down? Yes Plan for ? No Continue to monitor? Yes Start pushing? No Comment: She now has epidural and she is much more comfortable. I can feel cervix posteriorly. I am concerned that she may be occiput posterior. We have inserted an IUPC and we will also do an amnioinfusion since she's having a few mild late decelerations. at 0872
[2017-01-29 09:00] VITALS: BP 130/85
--- NOTE | 2017-01-29 11:16 | Delivery Note ---
Delivery note Delivery date: 01/29/17 Delivery time: 1054 Anesthesia: Epidural, Truman Kuo Was labor medically induced? No Gestational age in weeks: 40 weeks Days: 1 day Delivery prior to 39 weeks? No Sex: female score at one minute: 9 at 5 minutes: 9 Type of suction: bulb AF: Clear fluid LAC or MLE: LAC (1st degree) Delivery procedure: Forceps Delivery Delivery of placenta: spontaneous Clinical note She is a 21-year-old 1 now para 0 who was 40 and 1 weeks gestational age. She came in in active labor. She was found to be 8-9 cm dilated and as result of that had her membranes ruptured. There was a bulging bag. There was clear fluid. She subsequently had a clip applied as well as intrauterine pressure catheter. She was having a few late decelerations so we did an amnioinfusion and this seemed to help with that. We then started having her push and she progressed to station +4 in the direct OA position. Her bladder was empty. He was having some prolonged decelerations and as result of that we elected to place Youssef forceps with pads in the direct OA position at station +4 with an empty bladder. Using 1 long gentle pull I was able to easily deliver the baby's head. This was followed by the anterior shoulder and the rest of the infant's body atraumatically. The baby cried spontaneously and the oropharynx and nasopharynx were bulb suctioned. Since the baby was vigorous we elected to allow the cord pulsating for approximately 1 minute. The cord was then doubly clamped and cut. The infant was then handed off to Dr. Kline who assigned Apgars of 9 at 1 minute and 9 at 5 minutes. We then obtained cord blood as well as cord pH. The pH was 7.20. Using gentle traction on the cord and countertraction the fundus I was able to easily deliver the placenta intact. It had a normal three-vessel cord. She had a small first-degree posterior vaginal laceration that was repaired with interrupted 3-0 Vicryl Rapide suture. She had a small hematoma on the RIGHT labia minora and a single [id number] suture was used here to obtain hemostasis and reapproximate the skin that had split. She has a positive blood, she is rubella immune and was group B streptococcus positive. She did receive IV antibiotics while in labor. She plans to breast- feed. The estimated blood loss was approximately 600 mL. at 1110
[2017-01-29 19:50] VITALS: BP 127/90
[2017-01-30 05:25] LABS: HEMOGLOBIN 9.5 g/dL (12.2-16.2)
[2017-01-30 08:30] VITALS: BP 118/58
--- NOTE | 2017-01-30 10:00 | ACUTE CARE PROGRESS NOTE (QUA) ---
Progress Notes Subjective Date 01/30/17 Time 0959 Note She is doing very well. She is eating and drinking and ambulating. She is bottle feeding and breast-feeding. Her lochia is normal. Patient/family reports: feeling better, no complaints Objective Findings Last VS-Temp:98.0 B/P:127/90 Pulse:92 Resp:20 SaO2: Last weight lbs:179 oz:8 K.421 Method:Floor Scales Laboratory Tests 01/30/17 0510: Hgb 9.5 L, Hct 27.9 L 01/29/17 1050: Cord Blood pH 7.20 L Exam General appearance: normal appearance, alert, awake, no acute distress Reviewed: vital signs, lab results Assessment/Plan Problem List 1. Normal delivery Patient condition Improving, Stable Plan: continue current care This inpt stay is expected to cross 2 MNs from start of care Yes Comments: She is doing very well and we will plan to send her home tomorrow. at 1000
[2017-01-30 20:10] VITALS: BP 130/60
[2017-01-31 08:05] VITALS: BP 132/58
--- NOTE | 2017-01-31 09:17 | Discharge Summary ---
Discharge Summary Admission date: 01/29/17 Discharge date: 01/31/17 Discharge diagnoses: Term , forceps delivery Clinical note: She is a 21-year-old 1 now para 1 who was 40 and 1 weeks gestational age. She came in in active labor. Course in hospital: She was having regular contractions and was found to be 4 cm dilated. She was observed and progressed under labor epidural to full dilation. She was having a few prolonged deceleration so we elected to place forceps in the direct OA position at station +4. She delivered a live-born female child at 10:54 AM on the morning of January. The baby weighed 6 lbs. 14 oz. and was 20-1/2 inches long. She had Apgars of 9 at 1 minute and 9 at 5 minutes. She has done well and has remained afebrile throughout her hospitalization. She is eating and drinking and ambulating. She is breast and bottlefeeding. She has a positive blood, she is rubella nonimmune and was group B streptococcus positive. She received IV antibiotics while in labor. She will receive MMR prior to discharge. Laboratory Tests 01/30/17 0510: Hgb 9.5 L, Hct 27.9 L 01/29/17 1050: Cord Blood pH 7.20 L 01/29/17 0145: MCH 31.3 H 01/29/17 0145: WBC 13.6 H, RBC 3.90 L, Hgb 12.2, Hct 36.1 L, MCV 92.5, RDW 14.1, Plt Count 240, MPV 10.2, Gran % 73.1, Gran # 10.0 H, Lymphocytes % 19.0, Monocytes % 5.3, Eosinophils % 2.3, Basophils % 0.3, Lymphocytes # 2.6, Monocytes # 0.7, Eosinophils # 0.3, Basophils # 0.1, PUBS MCHC 33.8, Antibody Screen NEGATIVE, Miscellaneous Test POSITIVE 01/29/17 0025: Urine Color YELLOW, Urine Appearance CLEAR, Urine pH 6.0, Ur Specific Elmer 1.025, Urine Protein NEGATIVE, Urine Ketones NEGATIVE, Urine Blood TRACE-LYSED, Urine Nitrate NEGATIVE, Urine Bilirubin NEGATIVE, Urine Urobilinogen 0.2, Ur Leukocyte Esterase 2+ H, Urine RBC 5-10, Urine WBC 20-50, Ur Squamous Epith Cells 5-10, Amorphous Sediment 2+, Urine Bacteria 1+, Urine Mucus 1+, Urine Trichomonas 2+, Urine Glucose NEGATIVE Microbiology Date/Time Procedure - Status Source Growth 01/29 25 Urine Culture - RECD URINE CC Pending Plans for ongoing care: She is discharged home to follow-up with me in 2 weeks' time. Discharge medications She'll continue with her vitamins and iron. She will take over-the- counter analgesics. DC/follow-up instructions She was given the usual instructions with respect to limiting her activity, driving and sexual activity. Condition at discharge Stable and improved at 0917
== END 2017-01-31 14:50 | disposition home or self-care (01) | DRG 775 ==
LOC: OB 00:14 → OBOUT 00:14 → OB 00:17 → OBOUT 01:38 → OB 01:38
PROVIDERS: Nurse Practitioner Obstetrics & Gynecology
PROC: 0HQ9XZZ Repair Perineum Skin, External Approach (ICD-10-PCS; principal; 2017-01-29)
PROC: 10D07Z3 Extraction of Products of Conception, Low Forceps, Via Natural or Artificial Opening (ICD-10-PCS; principal; 2017-01-29)
PROC: 3E0234Z Introduction of Serum, Toxoid and Vaccine into Muscle, Percutaneous Approach (ICD-10-PCS; 2017-01-31)
DX: O70.0 First degree perineal laceration during delivery (principal); Z23 Encounter for immunization; Z37.0 Single live birth; Z3A.40 40 weeks gestation of pregnancy
CPT/HCPCS: C1758; J0290